=== PATIENT | male | born 1960 | race Caucasian/White ===

== ENCOUNTER 2016-09-07 12:56 | Observation (INO) | payer BC ==
[~2016-09-07] VITALS: Ht 170.2 cm; Wt 72.6 kg
[2016-09-07] MEDS ORDERED: IV NORMAL SALINE 1000ML BAG 1,000 ML IV SCH (13:06)
[2016-09-07] MEDS ORDERED: ONDANSETRON PF 4 MG/2 ML VIAL. IV ONE (13:15)
[2016-09-07] MEDS ORDERED: 0.9 % SODIUM CHLORIDE 10 ML DISP.SYRIN. IV PRN (13:15)
[2016-09-07 13:20] LABS: BASO # 0.1 x10^3/uL (0.0-0.2); BASO % 1 % (0-3); EOS % 1 % (0-3); HEMOGLOBIN 17.8 g/dL (13.0-17.5); LYMPH # 2.4 x10^3/uL (1.0-4.8); LYMPH % 11 % (24-48); MEAN CORPUSCULAR HEMOGLOBIN 31 pg (25-35); MEAN CORPUSCULAR HGB CONC 34 g/dL (31-37); MEAN CORPUSCULAR VOLUME 91 fL (79-100); MONO % 6 % (0-9); NEUT % 82 % (31-73); PLATELET COUNT 290 x10^3/uL (140-400); RED BLOOD COUNT 5.81 x10^6/uL (4.30-5.70); RED CELL DISTRIBUTION WIDTH 13.4 % (11.5-14.5); WHITE BLOOD COUNT 22.4 x10^3/uL (4.0-11.0)
[2016-09-07 13:31] LABS: CALCIUM 10.2 mg/dL (8.5-10.1); CREATININE 1.7 mg/dL (0.7-1.3); GFR 42.1; POTASSIUM 3.8 mmol/L (3.5-5.1)
[2016-09-07 13:37] LABS: ALBUMIN 4.9 g/dL (3.4-5.0); ALBUMIN/GLOBULIN RATIO 1.3 (1.0-1.7); TOTAL BILIRUBIN 0.9 mg/dL (0.2-1.0); TOTAL PROTEIN 8.7 g/dL (6.4-8.2)
--- NOTE | 2016-09-07 13:41 | PHYS DOC ---
Past Medical History Past Medical History: High Cholesterol, Hypertension Additional Past Surgical Histo: NECK SURGERY Alcohol Use: None Drug Use: None Adult General Chief Complaint Chief Complaint: HYPOTENSION HPI HPI Patient is a pleasant 55-year-old male with a history of hypertension and hypercholesterolemia presents with sudden onset of dizziness near syncope nausea vomiting diarrhea while at the doctor's office today. Patient admits that he was sitting in the doctor's office today waiting to be evaluated by his primary care physician when he acutely became nauseous and lightheaded and dizzy with near-syncopal event. Patient Symptoms are coming on to deliver the floor but vomited. He denied any chest pain or abdominal pain or focal neurologic deficit at the time before after event. He is not febrile to have any chills but did become diaphoretic. Patient feels better at this point in time despite being mildly nauseous. He did not lose consciousness and has not been exposed to anybody sick. He is not relatively country is not short of breath denies any direct trauma to his head or neck. Review of Systems Review of Systems Constitutional: Denies fever or chills [] Eyes: Denies change in visual acuity, redness, or eye pain [] HENT: Denies nasal congestion or sore throat [] Respiratory: Denies cough or shortness of breath [] Cardiovascular: No additional information not addressed in HPI [] GI: Denies abdominal pain does has nausea and vomiting nonbilious nonbloody nonbloody diarrhea nonmucoid stool. : Denies dysuria or hematuria [] Musculoskeletal: Denies back pain or joint pain [] Integument: Denies rash or skin lesions [] Neurologic: Patient feels lightheaded and dizzy with diaphoresis but no focal neurologic deficits or changes. Endocrine: Denies polyuria or polydipsia [] Current Medications Current Medications Current Medications Medications (Trade) Dose Ordered Sig/Laly Start Time Stop Time Status Last Admin Dose Admin Ondansetron HCl (Zofran) 4 mg 1X ONCE 09/07/16 13:15 09/07/16 13:16 DC 09/07/16 13:07 4 MG Sodium Chloride (Iv Sodium Chloride 0.9% 1000ml Bag) 1,000 ml @ 1,000 mls/hr Q1H 09/07/16 13:06 09/07/16 14:05 DC 09/07/16 13:06 1,000 MLS/HR Sodium Chloride (Normal Saline Flush) 10 ml QSHIFT PRN 09/07/16 13:15 Allergies Allergies Allergies Coded Allergies Type Severity Reaction Last Updated Verified No Known Drug Allergies 09/07/16 No Physical Exam Physical Exam Constitutional: Well developed, well nourished, he does look pale and mildly diaphoretic but nontoxic in appearance. HENT: Normocephalic, atraumatic, bilateral external ears normal, oropharynx moist, no oral exudates, nose normal. [] Eyes: PERRLA, EOMI, conjunctiva normal, no discharge. [] Neck: Normal range of motion, no tenderness, supple, no stridor. [] Cardiovascular: Heart rate is normal rate and rhythm normal S1-S2 Lungs & Thorax: Bilateral breath sounds clear to auscultation [] Abdomen: Increased bowel sounds nontender nondistended no masses or pulsatile masses. It is soft with no guarding rebound or organomegaly. Skin: Warm, dry, no erythema, no rash. [] Back: No tenderness, no CVA tenderness. [] Extremities: No tenderness, no cyanosis, no clubbing, ROM intact, no edema. [] Neurologic: Alert and oriented X 3, normal motor function, normal sensory function, no focal deficits noted. [] Psychologic: Affect normal, judgement normal, mood normal. [] Vital signs stable Current Patient Data Vital Signs Vital Signs Date Time Temp Pulse Resp B/P Pulse Ox O2 Delivery O2 Flow Rate FiO2 09/07/16 13:15 97.4 92 18 99/55 98 Room Air 97.4 Lab Values Laboratory Tests Test 09/07/16 13:10 White Blood Count 22.4x10^3/uL (4.0-11.0) H Red Blood Count 5.81x10^6/uL (4.30-5.70) H Hemoglobin 17.8g/dL (13.0-17.5) H Hematocrit 53.0% (39.0-53.0) Mean Corpuscular Volume 91fL (79-100) Mean Corpuscular Hemoglobin 31pg (25-35) Mean Corpuscular Hemoglobin Concent 34g/dL (31-37) Red Cell Distribution Width 13.4% (11.5-14.5) Platelet Count 290x10^3/uL (140-400) Neutrophils (%) (Auto) 82% (31-73) H Lymphocytes (%) (Auto) 11% (24-48) L Monocytes (%) (Auto) 6% (0-9) Eosinophils (%) (Auto) 1% (0-3) Basophils (%) (Auto) 1% (0-3) Neutrophils # (Auto) 18.3x10^3uL (1.8-7.7) H Lymphocytes # (Auto) 2.4x10^3/uL (1.0-4.8) Monocytes # (Auto) 1.4x10^3/uL (0.0-1.1) H Eosinophils # (Auto) 0.2x10^3/uL (0.0-0.7) Basophils # (Auto) 0.1x10^3/uL (0.0-0.2) Segmented Neutrophils % 67% (35-66) H Band Neutrophils % 14% (0-9) H Lymphocytes % 13% (24-48) L Monocytes % 6% (0-10) Toxic Granulation Slight Platelet Estimate Adequate (ADEQUATE) Sodium Level 137mmol/L (136-145) Potassium Level 3.8mmol/L (3.5-5.1) Chloride Level 101mmol/L (98-107) Carbon Dioxide Level 27mmol/L (21-32) Anion Gap 9 (6-14) Blood Urea Nitrogen 19mg/dL (8-26) Creatinine 1.7mg/dL (0.7-1.3) H Estimated GFR (Cockcroft-Gault) 42.1 BUN/Creatinine Ratio 11 (6-20) Glucose Level 134mg/dL (70-99) H Calcium Level 10.2mg/dL (8.5-10.1) H Total Bilirubin 0.9mg/dL (0.2-1.0) Aspartate Amino Transferase (AST) 26U/L (15-37) Alanine Aminotransferase (ALT) 30U/L (16-63) Alkaline Phosphatase 159U/L (46-116) H Troponin I Quantitative < 0.017ng/mL (0.000-0.055) Total Protein 8.7g/dL (6.4-8.2) H Albumin 4.9g/dL (3.4-5.0) Albumin/Globulin Ratio 1.3 (1.0-1.7) Lipase 151U/L (73-393) Laboratory Tests 09/07/16 13:10 Laboratory Tests 09/07/16 13:10 EKG EKG EKG timed 1:07 PM 5 06/10/16 demonstrates normal sinus rhythm bilateral atrial enlargement with heart rate of 90 patient is a 20 ripen much months based on jehovah's witness RR prime noted in V2 V3. No Q waves no ST segment elevation or T- wave inversion cyst with ischemia. [] Radiology/Procedures Radiology/Procedures [] Course & Med Decision Making Course & Med Decision Making Pertinent Labs and Imaging studies reviewed. (See chart for details) ration arrived in our emergency department with a history of near syncope following nausea vomiting diarrhea episode. He admits he been starving himself for laboratory draw with his primary care doctor before this event began. On arrival he was very pale and very diaphoretic. Nauseated. Approximately 1400 hrs. he is reevaluated some improvement of his symptoms. His color returned his heart rate improved patient was feeling less nauseous. At approximately 1500 patient was reevaluated again we discussed the laboratory results with increasedcreatinine which is likely secondary to self-inflicted restriction of fluid and food over the last 24 hours for his test. Patient is on menses very lightheaded when he sits up. Approximately 1530 patient was still having symptoms and we elected to admit him to the hospital for fluid hydration. I called his admitting physician Dr. Hood who will see and has agreed to admit patient to his service. [] Dragon Disclaimer Dragon Disclaimer This electronic medical record was generated, in whole or in part, using a voice recognition dictation system. Departure Departure Impression: Primary Impression: Near syncope Additional Impression: Nausea & vomiting Disposition: 02 TRANSFER [facility] Admitting Physician: Gloria Hood Condition: IMPROVED Referrals: GLORIA HOOD MD (PCP) Problem Qualifiers APOORVA WILDE MD September 07, 2016 13:41
--- NOTE | 2016-09-07 14:04 | EKG ---
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
[2016-09-07 14:54] LABS: PLT ESTIMATE ADEQUATE (ADEQUATE); TOXIC GRANULATION SLIGHT
[2016-09-07] MEDS ORDERED: ACETAMINOPHEN 325 MG TABLET. PO PRN ×2 (15:45→20:30)
[2016-09-07] MEDS ORDERED: IV NORMAL SALINE 1000ML BAG 1,000 ML IV ONE (15:45)
[2016-09-07] MEDS ORDERED: ONDANSETRON PF 4 MG/2 ML VIAL. IV PRN ×2 (15:45→20:30)
[2016-09-07 17:34] VITALS: BP 129/70
[2016-09-07 17:35] VITALS: BP 129/70
[2016-09-07] MEDS ORDERED: LISI40TA PO (18:09)
[2016-09-07] MEDS ORDERED: SIMV40TA3 PO (18:09)
[2016-09-07 19:58] VITALS: BP 110/66
--- NOTE | 2016-09-07 20:23 | PDOC1 ---
History and Physical Past Medical History Cardiovascular: HTN Current Problem List Problem List Problems Medical Problems: (1) Nausea & vomiting Status: Acute (2) Near syncope Status: Acute Current Medications Current Medications Current Medications Medications (Trade) Dose Ordered Sig/Laly Start Time Stop Time Status Last Admin Dose Admin Acetaminophen 650 mg 650 mg PRN Q4HRS PRN 09/07/16 15:45 09/08/16 15:44 Lisinopril (Prinivil) 40 mg HS 09/07/16 21:00 Ondansetron HCl (Zofran) 4 mg PRN Q8HRS PRN 09/07/16 15:45 09/08/16 15:44 Simvastatin (Zocor) 40 mg QHS 09/07/16 21:00 Sodium Chloride (Iv Sodium Chloride 0.9% 1000ml Bag) 1,000 ml @ 100 mls/hr 1X ONCE 09/07/16 15:45 09/08/16 01:44 09/07/16 18:02 100 MLS/HR Sodium Chloride (Normal Saline Flush) 10 ml QSHIFT PRN 09/07/16 13:15 Allergies Allergies Allergies Coded Allergies Type Severity Reaction Last Updated Verified No Known Drug Allergies 09/07/16 No ROS Review of System CONSTITUTIONAL: diarrhea, no fever EYES: No recent changes SKIN: No rash or itching CARDIOVASCULAR: No chest pain, syncope, palpitations, or edema RESPIRATORY: No SOB or cough GASTROINTESTINAL: No nausea, vomiting or abdominal pain NEUROLOGICAL: No headaches or weakness ENDOCRINE: No cold or heat intolerance GENITOURINARY: No urgency or frequency of urination MUSCULOSKELETAL: No back pain or joint pain LYMPHATICS: No enlarged lymph nodes PSYCHIATRIC: No anxiety or depression Physical Exam Physical Exam GEN.: No apparent distress. Alert and oriented. HEENT: Head is normocephalic, atraumatic NECK: Supple. LUNGS: Clear to auscultation. HEART: RRR, S1, S2 present. Peripheral pulses intact ABDOMEN: Soft, nontender. Positive bowel sounds. EXTREMITIES: Without any cyanosis. NEUROLOGIC: Normal speech, normal tone PSYCHIATRIC: Normal affect, normal mood. SKIN: No ulcerations Vitals Vitals Vital Signs Date Time Temp Pulse Resp B/P Pulse Ox O2 Delivery O2 Flow Rate FiO2 09/07/16 19:58 97.7 88 16 110/66 99 Room Air 97.7 Labs Labs Laboratory Tests Test 09/07/16 13:10 White Blood Count 22.4x10^3/uL (4.0-11.0) Red Blood Count 5.81x10^6/uL (4.30-5.70) Hemoglobin 17.8g/dL (13.0-17.5) Hematocrit 53.0% (39.0-53.0) Mean Corpuscular Volume 91fL (79-100) Mean Corpuscular Hemoglobin 31pg (25-35) Mean Corpuscular Hemoglobin Concent 34g/dL (31-37) Red Cell Distribution Width 13.4% (11.5-14.5) Platelet Count 290x10^3/uL (140-400) Neutrophils (%) (Auto) 82% (31-73) Lymphocytes (%) (Auto) 11% (24-48) Monocytes (%) (Auto) 6% (0-9) Eosinophils (%) (Auto) 1% (0-3) Basophils (%) (Auto) 1% (0-3) Neutrophils # (Auto) 18.3x10^3uL (1.8-7.7) Lymphocytes # (Auto) 2.4x10^3/uL (1.0-4.8) Monocytes # (Auto) 1.4x10^3/uL (0.0-1.1) Eosinophils # (Auto) 0.2x10^3/uL (0.0-0.7) Basophils # (Auto) 0.1x10^3/uL (0.0-0.2) Segmented Neutrophils % 67% (35-66) Band Neutrophils % 14% (0-9) Lymphocytes % 13% (24-48) Monocytes % 6% (0-10) Toxic Granulation Slight Platelet Estimate Adequate (ADEQUATE) Sodium Level 137mmol/L (136-145) Potassium Level 3.8mmol/L (3.5-5.1) Chloride Level 101mmol/L (98-107) Carbon Dioxide Level 27mmol/L (21-32) Anion Gap 9 (6-14) Blood Urea Nitrogen 19mg/dL (8-26) Creatinine 1.7mg/dL (0.7-1.3) Estimated GFR (Cockcroft-Gault) 42.1 BUN/Creatinine Ratio 11 (6-20) Glucose Level 134mg/dL (70-99) Calcium Level 10.2mg/dL (8.5-10.1) Total Bilirubin 0.9mg/dL (0.2-1.0) Aspartate Amino Transf (AST/SGOT) 26U/L (15-37) Alanine Aminotransferase (ALT/SGPT) 30U/L (16-63) Alkaline Phosphatase 159U/L (46-116) Troponin I Quantitative < 0.017ng/mL (0.000-0.055) Total Protein 8.7g/dL (6.4-8.2) Albumin 4.9g/dL (3.4-5.0) Albumin/Globulin Ratio 1.3 (1.0-1.7) Lipase 151U/L (73-393) Laboratory Tests Test 09/07/16 13:10 White Blood Count 22.4x10^3/uL (4.0-11.0) Red Blood Count 5.81x10^6/uL (4.30-5.70) Hemoglobin 17.8g/dL (13.0-17.5) Hematocrit 53.0% (39.0-53.0) Mean Corpuscular Volume 91fL (79-100) Mean Corpuscular Hemoglobin 31pg (25-35) Mean Corpuscular Hemoglobin Concent 34g/dL (31-37) Red Cell Distribution Width 13.4% (11.5-14.5) Platelet Count 290x10^3/uL (140-400) Neutrophils (%) (Auto) 82% (31-73) Lymphocytes (%) (Auto) 11% (24-48) Monocytes (%) (Auto) 6% (0-9) Eosinophils (%) (Auto) 1% (0-3) Basophils (%) (Auto) 1% (0-3) Neutrophils # (Auto) 18.3x10^3uL (1.8-7.7) Lymphocytes # (Auto) 2.4x10^3/uL (1.0-4.8) Monocytes # (Auto) 1.4x10^3/uL (0.0-1.1) Eosinophils # (Auto) 0.2x10^3/uL (0.0-0.7) Basophils # (Auto) 0.1x10^3/uL (0.0-0.2) Segmented Neutrophils % 67% (35-66) Band Neutrophils % 14% (0-9) Lymphocytes % 13% (24-48) Monocytes % 6% (0-10) Toxic Granulation Slight Platelet Estimate Adequate (ADEQUATE) Sodium Level 137mmol/L (136-145) Potassium Level 3.8mmol/L (3.5-5.1) Chloride Level 101mmol/L (98-107) Carbon Dioxide Level 27mmol/L (21-32) Anion Gap 9 (6-14) Blood Urea Nitrogen 19mg/dL (8-26) Creatinine 1.7mg/dL (0.7-1.3) Estimated GFR (Cockcroft-Gault) 42.1 BUN/Creatinine Ratio 11 (6-20) Glucose Level 134mg/dL (70-99) Calcium Level 10.2mg/dL (8.5-10.1) Total Bilirubin 0.9mg/dL (0.2-1.0) Aspartate Amino Transf (AST/SGOT) 26U/L (15-37) Alanine Aminotransferase (ALT/SGPT) 30U/L (16-63) Alkaline Phosphatase 159U/L (46-116) Troponin I Quantitative < 0.017ng/mL (0.000-0.055) Total Protein 8.7g/dL (6.4-8.2) Albumin 4.9g/dL (3.4-5.0) Albumin/Globulin Ratio 1.3 (1.0-1.7) Lipase 151U/L (73-393) VTE Prophylaxis Ordered VTE Prophylaxis Devices: No VTE Pharmacological Prophylaxi: No MAINE ABRAHAM MD September 07, 2016 20:23
[2016-09-07] MEDS ORDERED: HYDROCODONE/APAP 5/325MG TABLET. PO PRN (20:30)
[2016-09-07] MEDS ORDERED: hydrALAZINE 20 MG/ML VIAL. IVP PRN (20:30)
[2016-09-07] MEDS: IV NORMAL SALINE 1000ML BAG 1,000 ML IV SCH (20:30)
[2016-09-07] MEDS ORDERED: ALBUTEROL SULFATE 2.5 MG/3 ML NEBU. NEB PRN (20:30)
[2016-09-07] MEDS: CIPROFLOXACIN 400MG PREMIX 200 ML IV SCH (20:53)
[2016-09-07] MEDS: METRONIDAZOLE 500mg PREMIX 100 ML IV SCH (20:53)
[2016-09-07] MEDS ORDERED: SIMVASTATIN 40 MG TABLET. PO SCH (21:00)
[2016-09-07] MEDS ORDERED: LISINOPRIL 40 MG TABLET. PO SCH (21:00)
--- NOTE | 2016-09-07 22:53 | HP ---
ADMIT DATE: 09/07/2016 CHIEF COMPLAINT: Hypotension. HISTORY OF PRESENT ILLNESS: A 55-year-old male patient with prior history of hypertension and hyperlipidemia, presented to the ER with complaints of dizziness and near syncope. He was evaluated by the PCP's office this morning and sent him to the ER. Reportedly, the patient has some nausea and diarrhea for nearly 1 day. He had a nearly 7 bowel movements prior to his visit to ER. At the time of admission, he was hypotensive, 99/55, with tachycardia. Symptoms improved with IV hydration; however, he continued to have diarrhea during hospitalization. He denies any fevers, chills, sick contacts, or travel history. 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 He developed some vasomotor nephropathy and acute kidney injury due to dehydration. PAST MEDICAL HISTORY: Hypertension and hyperlipidemia. PAST SURGICAL HISTORY: None. ALLERGIES: NKDA. FAMILY HISTORY: Unknown to the patient. PERSONAL HISTORY: Smoking occasionally. No alcohol, no drug abuse. REVIEW OF SYSTEMS AND PHYSICAL EXAMINATION: Please see my electronic H and P. LABORATORY FINDINGS: WBC 22.5, hemoglobin 17.88, platelets 290, segmented neutrophils 67, bands 14%. Toxic granulation slight. Chemistry: Sodium 137, potassium 3.8, chloride is 101, anion gap is 9, creatinine 1.7, glucose 134. Troponin 0.017. ASSESSMENT: 1. Severe diarrhea with dehydration and hypotension and near syncope. 2. Leukocytosis and acute kidney injury due to vasomotor nephropathy. 3. . 4. Near syncope due to dehydration. 5. Nausea and vomiting and diarrhea. 6. Possible gastroenteritis, viral versus infectious. PLAN: 1. He has been admitted to the hospital for IV hydration, currently he is getting IV fluids at 125 mL per hour. I will continue IV fluids. 2. CBC and BMP ordered, also I started him on ciprofloxacin and Flagyl, suspecting a bacterial infection and stool studies have been ordered. 3. C. diff is pending. 4. IV Zofran for nausea and vomiting. 5. home medications resumed. 6. Hypotension has been improving, I will recheck his BMP in a.m. 7. Monitor WBC in a.m. 8. Supportive care. 9. Prognosis is guarded. 10. All questions were answered. MAINE ABRAHAM MD DR: BRYANNA/syed JOB#: [id number] / [id number] DANIEL
[2016-09-07 23:35] VITALS: BP 119/71
[2016-09-08 03:41] VITALS: BP 102/63
[2016-09-08] MEDS: IV NORMAL SALINE 1000ML BAG 1,000 ML IV SCH (04:30)
[2016-09-08 06:07] LABS: BASO # 0.1 x10^3/uL (0.0-0.2); BASO % 1 % (0-3); EOS % 2 % (0-3); HEMATOCRIT 42.2 % (39.0-53.0); HEMOGLOBIN 14.7 g/dL (13.0-17.5); LYMPH # 2.7 x10^3/uL (1.0-4.8); LYMPH % 26 % (24-48); MEAN CORPUSCULAR HEMOGLOBIN 31 pg (25-35); MEAN CORPUSCULAR HGB CONC 35 g/dL (31-37); MEAN CORPUSCULAR VOLUME 89 fL (79-100); MONO % 6 % (0-9); NEUT % 66 % (31-73); PLATELET COUNT 192 x10^3/uL (140-400); RED BLOOD COUNT 4.73 x10^6/uL (4.30-5.70); RED CELL DISTRIBUTION WIDTH 13.3 % (11.5-14.5); WHITE BLOOD COUNT 10.5 x10^3/uL (4.0-11.0)
[2016-09-08] MEDS: METRONIDAZOLE 500mg PREMIX 100 ML IV SCH (06:13)
[2016-09-08 06:34] LABS: ALBUMIN 3.3 g/dL (3.4-5.0); ALBUMIN/GLOBULIN RATIO 1.2 (1.0-1.7); CALCIUM 8.3 mg/dL (8.5-10.1); CREATININE 0.9 mg/dL (0.7-1.3); GFR 87.6; TOTAL PROTEIN 6.1 g/dL (6.4-8.2)
[2016-09-08 07:20] VITALS: BP 118/80
[2016-09-08] MEDS: CIPROFLOXACIN 400MG PREMIX 200 ML IV SCH (08:27)
[2016-09-08 10:53] VITALS: BP 120/73
[2016-09-08] MEDS ORDERED: CIPR500T94 PO (10:55)
--- NOTE | 2016-09-08 10:58 | PDOC3 ---
Discharge Summary Visit Information Date of Admission: September 07, 2016 Date of Discharge: September 08, 2016 Admitting Diagnosis Comment: 1. Severe diarrhea with dehydration and hypotension and near syncope. resolved 2. Leukocytosis and acute kidney injury due to vasomotor nephropathy. 3. . 4. Near syncope due to dehydration. 5. Nausea and vomiting and diarrhea. 6. Possible gastroenteritis, viral versus infectious. Final Diagnosis Problems Medical Problems: (1) Gastroenteritis Status: Acute (2) Nausea & vomiting Status: Acute (3) Near syncope Status: Acute Brief Hospital Course Allergies Allergies Coded Allergies Type Severity Reaction Last Updated Verified No Known Drug Allergies 09/07/16 No Vital Signs Vital Signs Date Time Temp Pulse Resp B/P Pulse Ox O2 Delivery O2 Flow Rate FiO2 09/08/16 10:53 97.5 84 18 120/73 95 Room Air 97.5 Lab Results Laboratory Tests Test 09/07/16 13:10 09/08/16 05:10 White Blood Count 22.4x10^3/uL (4.0-11.0) 10.5x10^3/uL (4.0-11.0) Red Blood Count 5.81x10^6/uL (4.30-5.70) 4.73x10^6/uL (4.30-5.70) Hemoglobin 17.8g/dL (13.0-17.5) 14.7g/dL (13.0-17.5) Hematocrit 53.0% (39.0-53.0) 42.2% (39.0-53.0) Mean Corpuscular Volume 91fL (79-100) 89fL (79-100) Mean Corpuscular Hemoglobin 31pg (25-35) 31pg (25-35) Mean Corpuscular Hemoglobin Concent 34g/dL (31-37) 35g/dL (31-37) Red Cell Distribution Width 13.4% (11.5-14.5) 13.3% (11.5-14.5) Platelet Count 290x10^3/uL (140-400) 192x10^3/uL (140-400) Neutrophils (%) (Auto) 82% (31-73) 66% (31-73) Lymphocytes (%) (Auto) 11% (24-48) 26% (24-48) Monocytes (%) (Auto) 6% (0-9) 6% (0-9) Eosinophils (%) (Auto) 1% (0-3) 2% (0-3) Basophils (%) (Auto) 1% (0-3) 1% (0-3) Neutrophils # (Auto) 18.3x10^3uL (1.8-7.7) 6.9x10^3uL (1.8-7.7) Lymphocytes # (Auto) 2.4x10^3/uL (1.0-4.8) 2.7x10^3/uL (1.0-4.8) Monocytes # (Auto) 1.4x10^3/uL (0.0-1.1) 0.6x10^3/uL (0.0-1.1) Eosinophils # (Auto) 0.2x10^3/uL (0.0-0.7) 0.2x10^3/uL (0.0-0.7) Basophils # (Auto) 0.1x10^3/uL (0.0-0.2) 0.1x10^3/uL (0.0-0.2) Segmented Neutrophils % 67% (35-66) Band Neutrophils % 14% (0-9) Lymphocytes % 13% (24-48) Monocytes % 6% (0-10) Toxic Granulation Slight Platelet Estimate Adequate (ADEQUATE) Sodium Level 137mmol/L (136-145) 139mmol/L (136-145) Potassium Level 3.8mmol/L (3.5-5.1) 4.0mmol/L (3.5-5.1) Chloride Level 101mmol/L (98-107) 107mmol/L (98-107) Carbon Dioxide Level 27mmol/L (21-32) 26mmol/L (21-32) Anion Gap 9 (6-14) 6 (6-14) Blood Urea Nitrogen 19mg/dL (8-26) 18mg/dL (8-26) Creatinine 1.7mg/dL (0.7-1.3) 0.9mg/dL (0.7-1.3) Estimated GFR (Cockcroft-Gault) 42.1 87.6 BUN/Creatinine Ratio 11 (6-20) 20 (6-20) Glucose Level 134mg/dL (70-99) 94mg/dL (70-99) Calcium Level 10.2mg/dL (8.5-10.1) 8.3mg/dL (8.5-10.1) Total Bilirubin 0.9mg/dL (0.2-1.0) 1.0mg/dL (0.2-1.0) Aspartate Amino Transf (AST/SGOT) 26U/L (15-37) 49U/L (15-37) Alanine Aminotransferase (ALT/SGPT) 30U/L (16-63) 29U/L (16-63) Alkaline Phosphatase 159U/L (46-116) 103U/L (46-116) Troponin I Quantitative < 0.017ng/mL (0.000-0.055) Total Protein 8.7g/dL (6.4-8.2) 6.1g/dL (6.4-8.2) Albumin 4.9g/dL (3.4-5.0) 3.3g/dL (3.4-5.0) Albumin/Globulin Ratio 1.3 (1.0-1.7) 1.2 (1.0-1.7) Lipase 151U/L (73-393) Laboratory Tests Test 09/07/16 13:10 09/08/16 05:10 White Blood Count 22.4x10^3/uL (4.0-11.0) 10.5x10^3/uL (4.0-11.0) Red Blood Count 5.81x10^6/uL (4.30-5.70) 4.73x10^6/uL (4.30-5.70) Hemoglobin 17.8g/dL (13.0-17.5) 14.7g/dL (13.0-17.5) Hematocrit 53.0% (39.0-53.0) 42.2% (39.0-53.0) Mean Corpuscular Volume 91fL (79-100) 89fL (79-100) Mean Corpuscular Hemoglobin 31pg (25-35) 31pg (25-35) Mean Corpuscular Hemoglobin Concent 34g/dL (31-37) 35g/dL (31-37) Red Cell Distribution Width 13.4% (11.5-14.5) 13.3% (11.5-14.5) Platelet Count 290x10^3/uL (140-400) 192x10^3/uL (140-400) Neutrophils (%) (Auto) 82% (31-73) 66% (31-73) Lymphocytes (%) (Auto) 11% (24-48) 26% (24-48) Monocytes (%) (Auto) 6% (0-9) 6% (0-9) Eosinophils (%) (Auto) 1% (0-3) 2% (0-3) Basophils (%) (Auto) 1% (0-3) 1% (0-3) Neutrophils # (Auto) 18.3x10^3uL (1.8-7.7) 6.9x10^3uL (1.8-7.7) Lymphocytes # (Auto) 2.4x10^3/uL (1.0-4.8) 2.7x10^3/uL (1.0-4.8) Monocytes # (Auto) 1.4x10^3/uL (0.0-1.1) 0.6x10^3/uL (0.0-1.1) Eosinophils # (Auto) 0.2x10^3/uL (0.0-0.7) 0.2x10^3/uL (0.0-0.7) Basophils # (Auto) 0.1x10^3/uL (0.0-0.2) 0.1x10^3/uL (0.0-0.2) Segmented Neutrophils % 67% (35-66) Band Neutrophils % 14% (0-9) Lymphocytes % 13% (24-48) Monocytes % 6% (0-10) Toxic Granulation Slight Platelet Estimate Adequate (ADEQUATE) Sodium Level 137mmol/L (136-145) 139mmol/L (136-145) Potassium Level 3.8mmol/L (3.5-5.1) 4.0mmol/L (3.5-5.1) Chloride Level 101mmol/L (98-107) 107mmol/L (98-107) Carbon Dioxide Level 27mmol/L (21-32) 26mmol/L (21-32) Anion Gap 9 (6-14) 6 (6-14) Blood Urea Nitrogen 19mg/dL (8-26) 18mg/dL (8-26) Creatinine 1.7mg/dL (0.7-1.3) 0.9mg/dL (0.7-1.3) Estimated GFR (Cockcroft-Gault) 42.1 87.6 BUN/Creatinine Ratio 11 (6-20) 20 (6-20) Glucose Level 134mg/dL (70-99) 94mg/dL (70-99) Calcium Level 10.2mg/dL (8.5-10.1) 8.3mg/dL (8.5-10.1) Total Bilirubin 0.9mg/dL (0.2-1.0) 1.0mg/dL (0.2-1.0) Aspartate Amino Transf (AST/SGOT) 26U/L (15-37) 49U/L (15-37) Alanine Aminotransferase (ALT/SGPT) 30U/L (16-63) 29U/L (16-63) Alkaline Phosphatase 159U/L (46-116) 103U/L (46-116) Troponin I Quantitative < 0.017ng/mL (0.000-0.055) Total Protein 8.7g/dL (6.4-8.2) 6.1g/dL (6.4-8.2) Albumin 4.9g/dL (3.4-5.0) 3.3g/dL (3.4-5.0) Albumin/Globulin Ratio 1.3 (1.0-1.7) 1.2 (1.0-1.7) Lipase 151U/L (73-393) Brief Hospital Course Mr. Jimenez is a 55 old male admitted for severe diarrhea and dehydration from 1 day diarrhea. non immunocomp, works long term. Unable to get c diff specimen bec no more diarrhea, NO fevers, WBC down to normal from 20, ULICES down to 0.8 from 1.7. Clinically better and ready for home today Ff up Dr. Terry Work excuse given Rx for cipro given COnsults None Dw , time 32 mins> 50% staff counselor Pt kiley nd exmained Discharge Information Condition at Discharge: Improved, Stable Disposition/Orders: D/C to Home Scheduled Lisinopril (Lisinopril) 1 TAB PO QHS (Reported) Simvastatin (Simvastatin) 1 TAB PO QHS (Reported) LÓPEZ DELATORRE MD September 08, 2016 10:58
== END 2016-09-08 11:20 | disposition home or self-care (01) ==
LOC: ER 12:56 → 6 SOUTH 16:07
PROVIDERS: ADMIT Internal Medicine; ATTEND Internal Medicine
DX: E86.0 Dehydration (principal); E78.00 Pure hypercholesterolemia, unspecified; E78.5 Hyperlipidemia, unspecified; I10 Essential (primary) hypertension; K52.9 Noninfective gastroenteritis and colitis, unspecified; N17.0 Acute kidney failure with tubular necrosis
CPT/HCPCS: 36415; 80053; 83690; 84484; 85007; 85027; 93005; 94250; 96361; 96365; 96366; 96368; 96375; 99285; G0378; J0744; J2405; J3490; J7030; G0379

== ENCOUNTER 2017-11-20 20:58 | Inpatient (IN) | payer BC ==
[2017-11-20 21:12] LABS: ADD MAN DIFF? NO
[2017-11-20 21:13] LABS: BASO # 0.1 x10^3/uL (0.0-0.2); BASO % 1 % (0-3); EOS # 0.3 x10^3/uL (0.0-0.7); EOS % 2 % (0-3); HEMATOCRIT 43.8 % (39.0-53.0); LYMPH # 3.6 x10^3/uL (1.0-4.8); LYMPH % 33 % (24-48); MEAN CORPUSCULAR HEMOGLOBIN 31 pg (25-35); MEAN CORPUSCULAR HGB CONC 34 g/dL (31-37); MEAN CORPUSCULAR VOLUME 92 fL (79-100); MONO # 0.7 x10^3/uL (0.0-1.1); MONO % 6 % (0-9); NEUT # 6.4 x10^3uL (1.8-7.7); NEUT % 58 % (31-73); PLATELET COUNT 175 x10^3/uL (140-400); RED BLOOD COUNT 4.76 x10^6/uL (4.30-5.70); RED CELL DISTRIBUTION WIDTH 13.8 % (11.5-14.5)
[2017-11-20 21:24] LABS: ANION GAP 11 (6-14); BLOOD UREA NITROGEN 23 mg/dL (8-26); BUN/CREATININE RATIO 19 (6-20); CALCIUM 8.6 mg/dL (8.5-10.1); CARBON DIOXIDE 25 mmol/L (21-32); CHLORIDE 106 mmol/L (98-107); CREATININE 1.2 mg/dL (0.7-1.3); GFR 62.4; GLUCOSE 105 mg/dL (70-99); POTASSIUM 4.4 mmol/L (3.5-5.1); SODIUM 142 mmol/L (136-145)
[2017-11-20 21:30] LABS: ALBUMIN 4.1 g/dL (3.4-5.0); ALBUMIN/GLOBULIN RATIO 1.6 (1.0-1.7); ALK PHOS 139 U/L (46-116); ALT (SGPT) 31 U/L (16-63); AST (SGOT) 21 U/L (15-37); MAGNESIUM 1.8 mg/dL (1.8-2.4); TOTAL BILIRUBIN 0.4 mg/dL (0.2-1.0); TOTAL PROTEIN 6.7 g/dL (6.4-8.2)
[2017-11-20 21:34] LABS: TROPONINI 0.056 ng/mL (0.000-0.055)
[2017-11-20] MEDS: IV NORMAL SALINE 1000ML BAG 1,000 ML IV (21:56)
[2017-11-20 23:59] LABS: TROPONINI 0.184 ng/mL (0.000-0.055)
[2017-11-21] MEDS ORDERED: MORPHINE SULFATE 2 MG/ML DISP.SYRIN. IV (00:45)
[2017-11-21] MEDS ORDERED: ONDANSETRON PF 4 MG/2 ML VIAL. IV (00:45)
[2017-11-21] MEDS: HEPARIN for IV BOLUS 10,000 UNIT/10 ML VIAL. IV ×2 (01:10→09:52)
[2017-11-21] MEDS: HEPARIN 25,000UTS/500ML PREMIX 500 ML IV (01:10)
[2017-11-21] MEDS ORDERED: HEPARIN 25,000UTS/500ML PREMIX 500 ML IV (02:30)
[2017-11-21 07:42] LABS: TROPONINI 0.118 ng/mL (0.000-0.055)
[2017-11-21 07:48] LABS: UNFRACTIONATED HEPARIN TESTING 0.17 IU/mL (0.30-0.70)
[2017-11-21] MEDS ORDERED: 0.9 % SODIUM CHLORIDE 10 ML DISP.SYRIN. IV (09:30)
[2017-11-21 09:45] LABS: CHOLESTEROL 185 mg/dL (0-200); HDLC 41 mg/dL (40-60); LDLC 133 mg/dL (0-100); NON-HDL CHOLESTEROL 144 mg/dL (0-129); TRIGLYCERIDES 56 mg/dL (0-150); VLDLC 11 mg/dL (0-40)
[2017-11-21] MEDS: METOPROLOL TART IMMED RELEASE 25 MG TABLET. PO ×2 (09:45→21:03)
[2017-11-21] MEDS: ASPIRIN 325 MG TABLET PO (09:45)
[2017-11-21 09:47] LABS: CHOLESTEROL/HDL RATIO 4.5
[2017-11-21] MEDS ORDERED: IODIXANOL 320 MG/ML 100 ML VIAL. ×2 (11:26→11:27)
[2017-11-21] MEDS ORDERED: HEPARIN for ARTERIAL LINE 1,500 ML (11:27)
[2017-11-21] MEDS ORDERED: LIDOCAINE 2% 20 ML VIAL. (11:27)
[2017-11-21] MEDS: ANTI-COAG MONITOR BY PHARMACY. MC (12:29)
[2017-11-21] MEDS ORDERED: HEPARIN for IV BOLUS 10,000 UNIT/10 ML VIAL. (13:48)
[2017-11-21] MEDS ORDERED: fentaNYL PF VIAL 100 MCG/2 ML VIAL (13:48)
[2017-11-21] MEDS ORDERED: MIDAZOLAM HCL/PF 2 MG/2 ML VIAL. ×2 (13:48→14:36)
[2017-11-21] MEDS ORDERED: VERAPAMIL 5 MG/2 ML VIAL. (13:48)
[2017-11-21] MEDS ORDERED: NITROGLYCERIN 200 MCG/2 ML SYRINGE FOR CATH/VASC LAB. (13:48)
[2017-11-21] MEDS ORDERED: CONTRAST GIVEN. MC (14:30)
[2017-11-21] MEDS: LIDOCAINE 2% 20 ML VIAL. IJ (15:00)
[2017-11-21] MEDS: VERAPAMIL 5 MG/2 ML VIAL. IART (15:01)
[2017-11-21] MEDS: NITROGLYCERIN 200 MCG/2 ML SYRINGE FOR CATH/VASC LAB. IART (15:01)
[2017-11-21] MEDS: IODIXANOL 320 MG/ML 100 ML VIAL. IART (15:01)
[2017-11-21] MEDS: HEPARIN for IV BOLUS 10,000 UNIT/10 ML VIAL. IART (15:02)
[2017-11-21] MEDS: MIDAZOLAM HCL/PF 2 MG/2 ML VIAL. IV (15:02)
[2017-11-21] MEDS: fentaNYL PF VIAL 100 MCG/2 ML VIAL IV (15:03)
[2017-11-21] MEDS: ATORVASTATIN CALCIUM 40 MG TABLET. PO (21:03)
[2017-11-22 04:26] LABS: ADD MAN DIFF? NO
[2017-11-22 04:29] LABS: BASO # 0.1 x10^3/uL (0.0-0.2); BASO % 1 % (0-3); EOS # 0.2 x10^3/uL (0.0-0.7); EOS % 2 % (0-3); HEMATOCRIT 43.7 % (39.0-53.0); LYMPH # 2.2 x10^3/uL (1.0-4.8); LYMPH % 20 % (24-48); MEAN CORPUSCULAR HEMOGLOBIN 32 pg (25-35); MEAN CORPUSCULAR HGB CONC 34 g/dL (31-37); MEAN CORPUSCULAR VOLUME 92 fL (79-100); MONO # 0.7 x10^3/uL (0.0-1.1); MONO % 6 % (0-9); NEUT % 72 % (31-73); PLATELET COUNT 150 x10^3/uL (140-400); RED BLOOD COUNT 4.75 x10^6/uL (4.30-5.70); RED CELL DISTRIBUTION WIDTH 13.7 % (11.5-14.5); WHITE BLOOD COUNT 11.2 x10^3/uL (4.0-11.0)
[2017-11-22 04:58] LABS: ALBUMIN 3.6 g/dL (3.4-5.0); ALBUMIN/GLOBULIN RATIO 1.4 (1.0-1.7); ALK PHOS 118 U/L (46-116); ALT (SGPT) 25 U/L (16-63); ANION GAP 9 (6-14); AST (SGOT) 18 U/L (15-37); BLOOD UREA NITROGEN 16 mg/dL (8-26); BUN/CREATININE RATIO 18 (6-20); CALCIUM 8.5 mg/dL (8.5-10.1); CARBON DIOXIDE 25 mmol/L (21-32); CHLORIDE 106 mmol/L (98-107); CREATININE 0.9 mg/dL (0.7-1.3); GLUCOSE 98 mg/dL (70-99); POTASSIUM 3.9 mmol/L (3.5-5.1); SODIUM 140 mmol/L (136-145); TOTAL BILIRUBIN 0.7 mg/dL (0.2-1.0); TOTAL PROTEIN 6.2 g/dL (6.4-8.2)
[2017-11-22] MEDS: METOPROLOL TART IMMED RELEASE 25 MG TABLET. PO (08:03)
[2017-11-22] MEDS ORDERED: dilTIAZem IV PUSH 25 MG/5 ML VIAL IVP (11:15)
[2017-11-22] MEDS ORDERED: dilTIAZem INJ 125 MG in IV DEXTROSE 5% 100ML 100 ML IV (11:30)
== END 2017-11-22 11:42 | disposition home or self-care (01) | DRG 280 ==
LOC: 1 WEST ICU 11-21 00:23 → ER 20:58 → 2 NORTH 11-21 08:29
PROC: B2111ZZ Fluoroscopy of Multiple Coronary Arteries using Low Osmolar Contrast (ICD-10-PCS; principal; 2017-11-21)
PROC: B2151ZZ Fluoroscopy of Left Heart using Low Osmolar Contrast (ICD-10-PCS; 2017-11-21)
PROC: 4A023N8 Measurement of Cardiac Sampling and Pressure, Bilateral, Percutaneous Approach (ICD-10-PCS; 2017-11-21)
DX: I21.4 Non-ST elevation (NSTEMI) myocardial infarction (principal); I50.33 Acute on chronic diastolic (congestive) heart failure; E78.00 Pure hypercholesterolemia, unspecified; E78.5 Hyperlipidemia, unspecified; F17.210 Nicotine dependence, cigarettes, uncomplicated; I10 Essential (primary) hypertension; I25.10 Atherosclerotic heart disease of native coronary artery without angina pectoris; I35.9 Nonrheumatic aortic valve disorder, unspecified; I45.10 Unspecified right bundle-branch block; Z82.49 Family history of ischemic heart disease and other diseases of the circulatory system; Z95.1 Presence of aortocoronary bypass graft; M19.90 Unspecified osteoarthritis, unspecified site
CPT/HCPCS: 36415; 71045; 80053; 80061; 83735; 84484; 85025; 85520; 93005; 93306; 93460; 96361; 96365; 99152; 99153; 99285-25; 99406; C1769; C1773; C1892; J1644; J2001; J2250; J3010; J3490; J7030

== ENCOUNTER → 2017-12-12 | Outpatient (CLI) | payer BC ==
[2017-12-12 13:26] LABS: ADD MAN DIFF? NO
[2017-12-12 13:29] LABS: BASO # 0.1 x10^3/uL (0.0-0.2); BASO % 1 % (0-3); EOS # 0.3 x10^3/uL (0.0-0.7); EOS % 3 % (0-3); HEMATOCRIT 45.3 % (39.0-53.0); HEMOGLOBIN 15.6 g/dL (13.0-17.5); LYMPH # 3.2 x10^3/uL (1.0-4.8); LYMPH % 31 % (24-48); MEAN CORPUSCULAR HEMOGLOBIN 31 pg (25-35); MEAN CORPUSCULAR HGB CONC 35 g/dL (31-37); MEAN CORPUSCULAR VOLUME 91 fL (79-100); MONO # 0.8 x10^3/uL (0.0-1.1); MONO % 8 % (0-9); NEUT # 5.9 x10^3uL (1.8-7.7); NEUT % 57 % (31-73); PLATELET COUNT 186 x10^3/uL (140-400); RED BLOOD COUNT 4.99 x10^6/uL (4.30-5.70); RED CELL DISTRIBUTION WIDTH 13.3 % (11.5-14.5); WHITE BLOOD COUNT 10.4 x10^3/uL (4.0-11.0)
[2017-12-12 13:38] LABS: PARTIAL THROMBOPLASTIN TIME 28 SEC (24-38); PROTHROMBIN TIME PATIENT 12.7 SEC (11.7-14.0)
[2017-12-12 13:40] LABS: ANION GAP 8 (6-14); BLOOD UREA NITROGEN 12 mg/dL (8-26); BUN/CREATININE RATIO 13 (6-20); CARBON DIOXIDE 26 mmol/L (21-32); CHLORIDE 105 mmol/L (98-107); CREATININE 0.9 mg/dL (0.7-1.3); GLUCOSE 95 mg/dL (70-99); POTASSIUM 4.4 mmol/L (3.5-5.1); SODIUM 139 mmol/L (136-145)
[2017-12-12 13:46] LABS: ALBUMIN 4.1 g/dL (3.4-5.0); ALBUMIN/GLOBULIN RATIO 1.6 (1.0-1.7); ALK PHOS 135 U/L (46-116); ALT (SGPT) 38 U/L (16-63); AST (SGOT) 22 U/L (15-37); TOTAL BILIRUBIN 0.6 mg/dL (0.2-1.0); TOTAL PROTEIN 6.6 g/dL (6.4-8.2)
[2017-12-13 11:30] LABS: HEMOGLOBIN A1C 4.8 % (4.8-5.6)
== END | disposition home or self-care (01) ==
LOC: CT 11:12
DX: Z01.810 Encounter for preprocedural cardiovascular examination (principal); K80.20 Calculus of gallbladder without cholecystitis without obstruction; M47.894 Other spondylosis, thoracic region; E78.5 Hyperlipidemia, unspecified; E78.00 Pure hypercholesterolemia, unspecified; I25.10 Atherosclerotic heart disease of native coronary artery without angina pectoris; I11.0 Hypertensive heart disease with heart failure; I50.33 Acute on chronic diastolic (congestive) heart failure; R91.1 Solitary pulmonary nodule; Z87.891 Personal history of nicotine dependence
CPT/HCPCS: 36415; 71046; 71250; 80053; 83036; 85025; 85610; 85730; 93880

== ENCOUNTER 2017-12-13 05:51 | Inpatient (IN) | payer BC ==
--- NOTE | 2017-12-12 12:33 | PDOC1 ---
History and Physical Date of Admission Date of Admission DATE: 12/13/17 TIME: 06:30 Identification/Chief Complaint Chief Complaint Syncope Source Source: Chart review, Patient History of Present Illness History of Present Illness Mr Jimenez is a pleasant 57 year old male, who has severe aortic valve stenosis. The patient has a three-year history of intermittent syncopes. He also complains of occasional angina and shortness of breath on minimal exertion. He was admitted after a near syncope and CHF 2 weeks ago. An echo at that time demonstrated mean gradient across the aortic valve of 50mmHg, an aortic valve area of 0.8 cm, and a velocity of 4.2, consistent with severe aortic valve stenosis. Ejection fraction is preserved and the rest of the valves are functioning well. He also had coronary angiography which was essentially normal. A left heart cath showed increased LVEDP of 35mmHg. Past Medical History Cardiovascular: HTN, Hyperlipidemia Pulmonary: No pertinent hx CENTRAL NERVOUS SYSTEM: Other GI: No pertinent hx Heme/Onc: No pertinent hx Hepatobiliary: No pertinent hx Psych: No pertinent hx Musculoskeletal: Osteoarthritis Rheumatologic: No pertinent hx Infectious disease: No pertinent hx Renal/: No pertinent hx Endocrine: No pertinent hx Past Surgical History Past Surgical History: Tonsillectomy, Other Family History Family History: No Significant Social History ALCOHOL: none Drugs: None Current Medications Current Medications Current Medications Tranexamic Acid 1000 mg/Sodium Chloride 60 ml @ 60 mls/hr 1X PERIOP ONCE INJ ; Start 12/13/17 at 06:00; Stop 12/13/17 at 06:59 Cefazolin Sodium 1 gm/Sodium Chloride 500 ml @ 500 mls/hr 1X ONCE IRR ; Start 12/13/17 at 06:00; Stop 12/13/17 at 06:59 Active Scripts Active Aspirin Ec (Aspirin) 81 Mg Tablet.dr 1 Tab PO DAILY Metoprolol Tartrate 25 Mg Tablet 12.5 Mg PO BID Atorvastatin Calcium 40 Mg Tablet 40 Mg PO QHS Allergies Allergies: Coded Allergies: No Known Drug Allergies (Unverified , 12/13/17) ROS General: No: Chills, Night Sweats, Fatigue, Malaise, Appetite PSYCHOLOGICAL ROS: No: Anxiety, Behavioral Disorder, Concentration difficultie , Decreased libido, Depression, Disorientation, Hallucinations, Hostility, Irritablity, Memory difficulties, Mood Swings, Obsessive thoughts, Physical abuse, Sexual abuse, Sleep disturbances, Suicidal ideation Eyes: No Blurry vision, No Decreased vision, No Double vision, No Dry eyes, No Excessive tearing, No Eye Pain, No Itchy Eyes, No Loss of vision, No Photophobia , No Scotomata, No Uses contacts, No Uses glasses HEENT: No: Heacaches, Visual Changes, Hearing change, Nasal congestion, Nasal discharge, Oral lesions, Sinus pain, Sore Throat, Epistaxis, Sneezing, Snoring, Tinnitus, Vertigo, Vocal changes ALLERGY AND IMMUNOLOGY: No: Hives, Insect Bite Sensitivity, Itchy/Watery Eyes, Nasal Congestion, Post Nasal Drip, Seasonal Allergies Hematological and Lymphatic: No: Bleeding Problems, Blood Clots, Blood Transfusions, Brusing, Night Sweats, Pallor, Swollen Lymph Nodes ENDOCRINE: No: Breast Changes, Galactorrhea, Hair Pattern Changes, Hot Flashes , Malaise/lethargy, Mood Swings, Palpitations, Polydipsia/polyuria, Skin Changes , Temperature Intolerance, Unexpected Weight Changes Respiratory: YES: SOB with excertion; No: Cough, Hemoptysis, Orthopnea, Pleuritic Pain, Shortness of breath, Sputum Changes, Stridor, Tachypnea, Wheezing Cardiovascular: yes Chest Pain, yes Lt Headedness; No Palpitations, No Orthopnea, No Paroxysmal Noc. Dyspnea, No Edema Gastrointestinal: No Nausea, No Vomiting, No Abdominal Pain, No Diarrhea, No Constipation, No Melena, No Hematochezia Genitourinary: No Dysuria, No Frequency, No Incontinence, No Hematuria, No Retention, No Discharge, No Urgency, No Pain, No Flank Pain Musculoskeletal: No Gait Disturbance, No Joint Pain, No Joint Stiffness, No Joint Swelling, No Muscle Pain, No Muscular Weakness, No Pain In:, No Swelling In: Neurological: No Behavorial Changes, No Bowel/Bladder ControlChng, No Confusion , No Dizziness, No Gait Disturbance, No Headaches, No Impaired Coord/balance, No Memory Loss, No Numbness/Tingling, No Seizures, No Speech Problems, No Tremors, No Visual Changes, No Weakness Skin: No Dry Skin, No Eczema, No Hair Changes, No Lumps, No Mole Changes, No Mottling, No Nail Changes, No Pruritus, No Rash, No Skin Lesion Changes, No Acne Physical Exam General: Alert, Oriented X3, No acute distress HEENT: Atraumatic, PERRLA Lungs: Clear to auscultation Heart: S1S2, RRR, no thrills, murmurs Abdomen: Normal bowel sounds, Soft, No tenderness Rectal Exam: deferred Extremities: No edema Skin: No significant lesion Neuro: Normal gait, Normal speech, Strength at 5/5 X4 ext, Normal tone, Sensation intact, Cranial nerves 3-12 NL, Reflexes 2+ Psych/Mental Status: Mental status NL VTE Prophylaxis Ordered VTE Prophylaxis Devices: Yes VTE Pharmacological Prophylaxi: No Assessment/Plan Assessment/Plan 57-year-old male with severe aortic valve stenosis, presenting with syncopes, CHF, and angina. ECHO shows a mean gradient of 50mmHg, an aortic valve area of 0.8 cm, and a velocity of 4.2. Ejection fraction is preserved and the rest of the valves are functioning well. His coronary arteries are clean. I had a long discussion with Mr. Jimenez, his his niece who accompany him. We went over the various valve options and the patient has opted for a bioprosthesis. I explained the risks which include but are not limited to mortality 2%, stroke 1-2%, renal failure requiring dialysis 1-2%, wound infection 5%, pneumonia 5%, ventilator dependence 5%, re-sternotomy for bleeding 5%, need for permanent pacemaker 10%, arrhythmias 20-30%. Patient except these risks and agrees to proceed. Proceed with bioprosthetic AVR TERRA CALDERON MD Dec 12, 2017 12:33
[~2017-12-13] VITALS: Ht 170.2 cm; Wt 96.2 kg
[~2017-12-13 05:51] MED LIST: ASPI-612 PO; ATOR40TA59 PO; CELE200C PO; CIPR500T94 PO; LISI-130 PO; METO25TA4 PO; SIMV40TA3 PO; VALS320T2 PO
[2017-12-13] MEDS ORDERED: TRANEXAMIC ACID 1,000 MG in IV NORMAL SALINE 50ML 50 ML INJ ONE (06:00)
[2017-12-13] MEDS ORDERED: SURGICEL HEMOSTAT 4X8 EACH. ONE (06:36)
[2017-12-13] MEDS ORDERED: VANCOMYCIN 10GM VIAL for OR. ONE (06:36)
[2017-12-13] MEDS ORDERED: MIDAZOLAM HCL/PF 2 MG/2 ML VIAL. ONE (06:41)
[2017-12-13] MEDS ORDERED: ETOMIDATE 20 MG/10 ML VIAL. IV ONE (06:41)
[2017-12-13] MEDS ORDERED: AMINOCAPROIC ACID 5,000 MG/20 ML VIAL. IV ONE (06:41)
[2017-12-13] MEDS ORDERED: SUFentanil 100 MCG/2 ML AMPUL. ONE (06:41)
[2017-12-13] MEDS ORDERED: ROCURONIUM 100 MG/10 ML VIAL. ONE ×2 (06:42→09:53)
[2017-12-13] MEDS ORDERED: PHENYLEPHRINE 10 MG/ML VIAL. ONE (06:43)
[2017-12-13] MEDS ORDERED: HEPARIN 30,000 UNIT/30 ML VIAL. ONE ×3 (06:46→12:13)
[2017-12-13] MEDS ORDERED: PROCHLORPERAZINE 10 MG/2 ML VIAL. IV PRN ×2 (07:00→12:45)
[2017-12-13] MEDS ORDERED: ONDANSETRON PF 4 MG/2 ML VIAL. IV PRN ×2 (07:00→12:45)
[2017-12-13] MEDS ORDERED: fentaNYL PF VIAL 100 MCG/2 ML VIAL IV PRN ×2 (07:00)
[2017-12-13] MEDS ORDERED: IV RINGERS,LACTATED 1000ML 1,000 ML IV SCH ×2 (07:00→12:42)
[2017-12-13] MEDS ORDERED: MORPHINE SULFATE 2 MG/ML DISP.SYRIN. IV PRN (07:00)
[2017-12-13] MEDS ORDERED: LIDOCAINE 1% PF 2 ML VIAL. ID PRN (07:00)
[2017-12-13] MEDS ORDERED: POTASSIUM CHLORIDE 15 MEQ, SODIUM BICARBONATE VIAL 12.5 MEQ in IV ELECTROLYTE-S (PH 7.4... IRR ONE (08:00)
[2017-12-13] MEDS ORDERED: POTASSIUM CHLORIDE 70 MEQ, SODIUM BICARBONATE VIAL 12.5 MEQ, LIDOCAINE 2% 24 ML in IV E... IRR ONE (08:00)
[2017-12-13] MEDS ORDERED: ePHEDrine PF IN SALINE 50 MG/5 ML DISP.SYRIN IV ONE (08:15)
[2017-12-13] MEDS ORDERED: DEXAMETHASONE SOD PHOS 20 MG/5 ML VIAL. ONE (09:06)
[2017-12-13] MEDS ORDERED: ISOFLURANE 61 TO 120 MINUTES. IH ONE (09:06)
[2017-12-13] MEDS ORDERED: PROPOFOL 50 ML IV ONE ×2 (09:08→11:23)
[2017-12-13] MEDS ORDERED: ceFAZolin SODIUM 1 GM VIAL ONE ×2 (09:28)
[2017-12-13] MEDS ORDERED: PROTAMINE 250 MG/25 ML VIAL IV ONE ×2 (10:09)
[2017-12-13] MEDS ORDERED: LIDOCAINE 2% PF Vial for OR 5 ML VIAL. ONE ×4 (11:42→12:58)
[2017-12-13] MEDS ORDERED: CALCIUM CHLORIDE 1,000 MG/10 ML DISP.SYRIN ONE ×2 (11:57→12:07)
[2017-12-13] MEDS ORDERED: fentaNYL PF VIAL 100 MCG/2 ML VIAL ONE (12:00)
[2017-12-13] MEDS ORDERED: ALBUMIN HUMAN 25% 100 ML IV ONE (12:07)
[2017-12-13] MEDS ORDERED: MANNITOL 25% 12.5 G/50 ML VIAL FOR OR. ONE (12:07)
[2017-12-13] MEDS ORDERED: MAGNESIUM SULFATE 5 GM/10 ML VIAL. ONE ×2 (12:07→12:13)
[2017-12-13 12:34] LABS: HEMATOCRIT 31.7 % (39.0-53.0)
[2017-12-13 12:37] LABS: WHITE BLOOD COUNT 15.8 x10^3/uL (4.0-11.0)
[2017-12-13 12:44] LABS: PROTHROMBIN TIME PATIENT 19.4 SEC (11.7-14.0)
[2017-12-13] MEDS ORDERED: BISACODYL 10 MG SUPP.RECT. PR PRN (12:45)
[2017-12-13] MEDS ORDERED: PROPOFOL 100 ML IV PRN (12:45)
[2017-12-13] MEDS ORDERED: ELECTROLYTE (ICU) PROTOCOL. MC PRN (12:45)
[2017-12-13] MEDS ORDERED: ACETAMINOPHEN 650 MG SUPP.RECT. PR PRN (12:45)
[2017-12-13] MEDS ORDERED: MAGNESIUM SULFATE 1GM 100 ML IV PRN (12:45)
[2017-12-13] MEDS ORDERED: DEXTROSE 50% 25 GM / 50ML DISP.SYRIN. IV PRN (12:45)
[2017-12-13] MEDS ORDERED: INSULIN REGULAR VIAL 150 UNIT in 0.9 % SODIUM CHLORIDE 150ML 150 ML IV PRN (12:45)
[2017-12-13] MEDS ORDERED: ALBUTEROL SULFATE 2.5 MG/3 ML NEBU. NEB PRN (12:45)
[2017-12-13] MEDS ORDERED: 0.9 % SODIUM CHLORIDE 10 ML DISP.SYRIN. IV PRN (12:45)
--- NOTE | 2017-12-13 13:29 | PDOC ---
BRIEF OPERATIVE NOTE Date: Dec 13, 2017 Pre-Op Diagnosis Severe aortic valve stenosis Congestive heart failure Syncope Hypertension Post-Op Diagnosis Severe aortic valve stenosis Congestive heart failure Syncope Hypertension Procedure Performed Aortic valve replacement (bioprosthesis, 21mm Magna Ease) Surgeon Terra Calderon MD Printmaker AUGUST Williamson Anesthesiologist Dr Ventura Anesthesia Type: General Blood Loss Cellsaver IV Fluid Crystalloid: 900 mls Urine Output 550 mls Specimens Obtained Aortic valve leaflet Findings Preop DAGOBERTO: MG 50mmHg Postop DAGOBERTO: MG 20mmHg, no paravalvular leak, normal LV function Off CPB without inotropes Complications None Operative Note CPB time: 113 min x-clamp time: 91 min TERRA CALDERON MD Dec 13, 2017 13:29
[2017-12-13] MEDS ORDERED: AMIODARONE 150 MG in IV DEXTROSE 5% 100ML 100 ML IV ONE (13:30)
[2017-12-13] MEDS ORDERED: AMIODARONE 900 MG in IV DEXTROSE 5% 500 ML IV PRN (13:30)
--- NOTE | 2017-12-13 13:31 | PDOC4 ---
Operative Note Operative Note Date Dec 13, 2017 Preoperative diagnosis Severe aortic valve stenosis Congestive heart failure Syncope Hypertension Postoperative diagnosis Severe aortic valve stenosis Congestive heart failure Syncope Hypertension Procedure Aortic valve replacement (bioprosthesis, 21mm Magna Ease) Surgeon Terra Calderon MD National Business Director AUGUST Williamson Anesthesiologist Dr Ventura Anesthesia type General Blood loss Cellsaver IV fluids Crystalloid: 900 mls Urine output 550 mls Specimens obtained Aortic valve leaflet Findings Preop DAGOBERTO: MG 50mmHg Postop DAGOBERTO: MG 20mmHg, no paravalvular leak, normal LV function Off CPB without inotropes Complications None Additional remarks CPB time: 113 min x-clamp time: 91 min Indication Mr Jimenez is a pleasant 57 year old male, who comes who has severe aortic valve stenosis. The patient has a three-year history of intermittent syncopes. He also complains of occasional angina and shortness of breath on minimal exertion. He was admitted after a near syncope and CHF 2 weeks ago. An echo at that time demonstrated mean gradient across the aortic valve of 50mmHg, an aortic valve area of 0.8 cm, and a velocity of 4.2, consistent with severe aortic valve stenosis. Ejection fraction is preserved and the rest of the valves are functioning well. He also had coronary angiography which was essentially normal. A left heart cath showed increased LVEDP of 35mmHg. Operation A sternotomy incision was performed. The pericardium was suspended. Heparin was given. Pre CPB DAGOBERTO showed critical with mean gradient 50mm Hg. The patient was cannulated through the ascending aorta and right atrium. A bifurcated root vent / antegrade cardioplegia cannula was placed in the ascending aorta. A retrograde cardiolplegia cannula was placed in the coronary sinus. Myocardial protection was achieved with antegrade and retrograde cardioplegia for induction and then every 20 minutes. The patient was placed on CPB and cooled to 34 celcius. The aorta was crossclamped and the heart was arrested. The aortotomy was made 1.5cm above the sinotubular junction and extended toward the non-coronary sinus. The valve was fused into a bicuspid and severely calcified. There was moderate calcification of the annulus. The leaflets were resected and complete decalcification of the annulus was performed. The annulus was of modest size. The LV cavity was irrigated of debris. A 21 mm pericardial prosthesis was seated in the suprannular position with 15 pledgeted sutures of 2-0 Ethibond. The seating was satisfactory. The tying was done with the Cor-Knot system. The aortotomy was closed in 2 layers of 4-0 Prolene. Prior to completing the aortotomy closure, the heart was deaired. The crossclamp was removed and the heart was allowed to rewarm and reperfuse. The patient came off bypass without inotropic support, after DC cardioversion from VFib. Temporary atrial and ventricular pacing wires were placed. Post cardiopulmonary bypass DAGOBERTO demonstrated no gradient across the aortic valve, no paravalvular leak, normal LV function. The chest was drained with 2 mediastinal chest tubes. Heparin was reversed with protamine. The heart was de-cannulated. There was some bleeding from the retrograde cannula site. The right atrium was very thin. I repaired this bleeding point with a 4-0 prolene pledgetted suture. Hemostasis was confirmed. Sternotomy was closed with seven stainless steel wires. The wound was closed in layers, 0 vicryl for fascia and 2-0 vicryl for deep dermis. The epidermis was closed with 4-0 monocryl. A sterile dressing was applied. At the end of the procedure, the instrument, needle and sponge counts were correct. The patient was transferred to the ICU in critical condition. There were no complications. CPB time was 113 min and x-clamp time was 91 min. TERRA CALDERON MD Dec 13, 2017 13:31
[2017-12-13 13:39] LABS: ART BE ISTAT 1 mmol/L (0-3); ART GLUC ISTAT 119 mg/dL (70-99); ART HCO3 ISTAT 25 mmol/L (21-28); ART HCT ISTAT 33 % (37-52); ART HGB ISTAT 11.2 g/dL (14-18); ART ION CA ISTAT 1.09 mmol/L (1.13-1.32); ART K ISTAT 5.1 mmol/L (3.5-5.0); ART NA ISTAT 139 mmol/L (135-145); ART PCO2 ISTAT 40 mmHg (35-45); ART PH ISTAT 7.41 (7.35-7.45); ART PO2 ISTAT 262 mmHg (75-100); ART SAT O2 SAT 100 % (95-99); ART TCO2 ISTAT 26 mmol/L (21-32)
[2017-12-13 13:39] LABS: ART BE ISTAT 0 mmol/L (0-3); ART GLUC ISTAT 139 mg/dL (70-99); ART HCO3 ISTAT 26 mmol/L (21-28); ART HCT ISTAT 33 % (37-52); ART HGB ISTAT 11.2 g/dL (14-18); ART K ISTAT 4.9 mmol/L (3.5-5.0); ART NA ISTAT 139 mmol/L (135-145); ART PCO2 ISTAT 50 mmHg (35-45); ART PH ISTAT 7.32 (7.35-7.45); ART PO2 ISTAT 262 mmHg (75-100); ART SAT O2 SAT 100 % (95-99); ART TCO2 ISTAT 27 mmol/L (21-32)
[2017-12-13 13:39] LABS: ART BE ISTAT -2 mmol/L (0-3); ART GLUC ISTAT 113 mg/dL (70-99); ART HCO3 ISTAT 23 mmol/L (21-28); ART HCT ISTAT 29 % (37-52); ART HGB ISTAT 9.9 g/dL (14-18); ART K ISTAT 4.3 mmol/L (3.5-5.0); ART NA ISTAT 139 mmol/L (135-145); ART PCO2 ISTAT 41 mmHg (35-45); ART PH ISTAT 7.36 (7.35-7.45); ART PO2 ISTAT 186 mmHg (75-100); ART SAT O2 SAT 100 % (95-99); ART TCO2 ISTAT 24 mmol/L (21-32)
[2017-12-13 13:39] LABS: ART BE ISTAT -1 mmol/L (0-3); ART GLUC ISTAT 145 mg/dL (70-99); ART HCO3 ISTAT 26 mmol/L (21-28); ART HCT ISTAT 33 % (37-52); ART HGB ISTAT 11.2 g/dL (14-18); ART ION CA ISTAT 1.22 mmol/L (1.13-1.32); ART K ISTAT 4.6 mmol/L (3.5-5.0); ART NA ISTAT 140 mmol/L (135-145); ART PCO2 ISTAT 52 mmHg (35-45); ART PO2 ISTAT 228 mmHg (75-100); ART SAT O2 SAT 100 % (95-99); ART TCO2 ISTAT 27 mmol/L (21-32)
[2017-12-13 13:39] LABS: ART BE ISTAT 2 mmol/L (0-3); ART GLUC ISTAT 109 mg/dL (70-99); ART HCO3 ISTAT 26 mmol/L (21-28); ART HCT ISTAT 40 % (37-52); ART HGB ISTAT 13.6 g/dL (14-18); ART ION CA ISTAT 1.25 mmol/L (1.13-1.32); ART K ISTAT 4.4 mmol/L (3.5-5.0); ART NA ISTAT 141 mmol/L (135-145); ART PCO2 ISTAT 41 mmHg (35-45); ART PH ISTAT 7.41 (7.35-7.45); ART PO2 ISTAT 346 mmHg (75-100); ART SAT O2 SAT 100 % (95-99); ART TCO2 ISTAT 27 mmol/L (21-32)
[2017-12-13 13:39] LABS: ART BE ISTAT -2 mmol/L (0-3); ART GLUC ISTAT 139 mg/dL (70-99); ART HCO3 ISTAT 24 mmol/L (21-28); ART HCT ISTAT 31 % (37-52); ART HGB ISTAT 10.5 g/dL (14-18); ART ION CA ISTAT 1.18 mmol/L (1.13-1.32); ART K ISTAT 4.7 mmol/L (3.5-5.0); ART NA ISTAT 139 mmol/L (135-145); ART PCO2 ISTAT 47 mmHg (35-45); ART PH ISTAT 7.33 (7.35-7.45); ART PO2 ISTAT 214 mmHg (75-100); ART SAT O2 SAT 100 % (95-99); ART TCO2 ISTAT 26 mmol/L (21-32)
[2017-12-13 13:39] LABS: ART BE ISTAT -3 mmol/L (0-3); ART GLUC ISTAT 93 mg/dL (70-99); ART HCO3 ISTAT 22 mmol/L (21-28); ART HCT ISTAT 39 % (37-52); ART HGB ISTAT 13.3 g/dL (14-18); ART ION CA ISTAT 1.53 mmol/L (1.13-1.32); ART K ISTAT 4.5 mmol/L (3.5-5.0); ART NA ISTAT 141 mmol/L (135-145); ART PCO2 ISTAT 40 mmHg (35-45); ART PH ISTAT 7.35 (7.35-7.45); ART PO2 ISTAT 156 mmHg (75-100); ART SAT O2 SAT 99 % (95-99); ART TCO2 ISTAT 23 mmol/L (21-32)
--- NOTE | 2017-12-13 13:49 | RAD ---
Portable chest, 12/13/2017: HISTORY: Postop evaluation Comparison is made to a study from 12/12/2017. A prosthetic aortic valve is now in place. The ET tube tip lies 9 cm above the kari at the level of the thoracic inlet. The NG tube tip tip lies in the distal esophagus near the GE junction. The right jugular Odell-Jay catheter tip lies at the level of the outflow tract of the right ventricle. Two mediastinal drains are in place. The heart size and pulmonary vascularity are normal. No pulmonary infiltrate is seen. There is no evidence of pleural fluid or pneumothorax. IMPRESSION: 1. Tube positions as described above. Of note is the high position of the NG tube with its tip lying in the distal esophagus. 2. No significant postoperative cardiopulmonary abnormality is detected. Electronically signed by: Billy Summers MD (12/13/2017 1:45 PM) [facility]
[2017-12-13] MEDS: MEPERIDINE PF 25 MG/ML VIAL. IV PRN ×2 (14:11→14:52)
--- NOTE | 2017-12-13 14:12 | CARD ---
MR#: [id number] Date of Study: 12/13/2017 Ordering Physician: TERRA CALDERON, Referring Physician: TERRA CALDERON Tech: Anat Fan RDCS APPROVED REPORT EXAM: Intraoperative DAGOBERTO INDICATION Aortic Valve Disease Surgery/Intervention Status/Post Aortic Valve Replacement: Bioprosthetic Date: 12/13/2017 Reason For Test : Evaluate prosthetic valve PROCEDURE After obtaining informed consent, patient underwent transesophageal echo in the Operating Room Type of Sedation : General Anesthesia The DAGOBERTO was performed without complications. Throughout the procedure, the blood pressure, pulse oximetry, cardiac rhythm, and rate were monitored . LEFT VENTRICLE The left ventricle is normal size. There is moderate to severe concentric left ventricular hypertroph y. The left ventricular systolic function is normal and the ejection fraction is within normal range. The Ejection Fraction is 55-60%. There is normal LV segmental wall motion. No left ventricle thrombu s noted on this study. RIGHT VENTRICLE The right ventricle is normal size. There is normal right ventricular wall thickness. The right ventr icular systolic function is normal. There is a PA catheter noted in the RA/RV. ATRIA The left atrium is mildly dilated. The right atrium size is normal. The interatrial septum is intact with no evidence for an atrial septal defect or patent foramen ovale as noted on 2-D or Doppler imagi ng. There is no thrombus noted in the left atrial appendage. AORTIC VALVE Heavily calcified probably functional bicuspid aortic valve. Doppler and Color Flow revealed no signi ficant aortic regurgitation. There is severe valvular aortic stenosis. MG 50 mm Hg. Post AVR, the bonnie ve gradient was approximately 20 mm Hg. 21 mm - Bioprosthesis leaflets are thin and move normally. MITRAL VALVE The mitral valve is normal in structure and function. There is no evidence of mitral valve prolapse. There is no mitral valve stenosis. Doppler and Color-flow revealed trace mitral regurgitation. TRICUSPID VALVE The tricuspid valve is normal in structure and function. Doppler and Color Flow revealed no tricuspid valve regurgitation noted. There is no tricuspid valve stenosis. PULMONIC VALVE The pulmonary valve is normal in structure and function. Doppler and Color Flow revealed no pulmonic valvular regurgitation. There is no pulmonic valvular stenosis. GREAT VESSELS The aortic root is normal in size. The ascending aorta is mildly dilated at 3.4 cm. The IVC is normal in size and collapses >50% with inspiration. Critical Notification Critical Value: No <Conclusion> There is moderate to severe concentric left ventricular hypertrophy. The left ventricular systolic function is normal and the ejection fraction is within normal range. Th e Ejection Fraction is 55-60%. There is a PA catheter noted in the RA/RV. Heavily calcified probably functional bicuspid aortic valve. There is severe valvular aortic stenosis. MG 50 mm Hg. Post AVR, the valve gradient was approximately 20 mm Hg. 21 mm - Bioprosthesis leaflets are thin and move normally. The ascending aorta is mildly dilated at 3.4 cm. Signed by : Sae Mata, Electronically Approved : 12/13/2017 13:29:35
[2017-12-13 14:15] LABS: BASE EXCESS COOX -8 mmol/L (-3-3); HCO3 COOX 20 mmol/L (21-28); METHEMOGLOBIN 0.4 % (0.0-1.9); OXYHEMOGLOBIN 97.9 %; PCO2 COOX 48 mmHg (35-46); PO2 COOX 187 mmHg (75-108); SAT O2 COOX 99 % (92-99)
[2017-12-13 14:17] LABS: HEMATOCRIT 43.9 % (39.0-53.0); RED BLOOD COUNT 4.81 x10^6/uL (4.30-5.70); RED CELL DISTRIBUTION WIDTH 13.3 % (11.5-14.5); WHITE BLOOD COUNT 27.8 x10^3/uL (4.0-11.0)
[2017-12-13] MEDS: MORPHINE SULFATE 2 MG/ML DISP.SYRIN. IV PRN ×4 (14:21→23:27)
--- NOTE | 2017-12-13 14:23 | EKG ---
[facility] [address] [place] [address] Test Date: 2017-12-13 Test Time: 14:18:11 Pat Name: KULWINDER BLUNT Department: Room: 105 1 Gender: M Recruiting Coordinator: JESSICA : 1960 Requested By: GOVIND LORA Order Number: [id number] Reading MD: Measurements Intervals [place] Rate: 103 P: 47 MA: 154 QRS: 59 QRSD: 80 T: 155 QT: 340 QTc: 447 Interpretive Statements SINUS TACHYCARDIA LEFT ATRIAL ABNORMALITY LVH WITH REPOLARIZATION ABNORMALITY ABNORMAL ECG RI6.01 Compared to ECG 11/20/2017 20:59:05 Incomplete right bundle-branch block no longer present
[2017-12-13 14:26] LABS: CALCIUM 9.5 mg/dL (8.5-10.1); CREATININE 1.1 mg/dL (0.7-1.3); MAGNESIUM 2.5 mg/dL (1.8-2.4); POTASSIUM 4.9 mmol/L (3.5-5.1)
[2017-12-13 14:27] LABS: PROTHROMBIN TIME PATIENT 16.1 SEC (11.7-14.0)
[2017-12-13] MEDS ORDERED: SODIUM BICARB ADULT 8.4% 50 MEQ/50 ML DISP.SYRIN. IV ONE ×2 (14:30→17:30)
[2017-12-13] MEDS: ALBUMIN HUMAN 5% 250 ML IV PRN ×3 (14:36→18:29)
[2017-12-13 15:20] LABS: BASE EXCESS ABG -3 mmol/L (-3-3); HCO3 ABG 22 mmol/L (21-28); PCO2 ABG 39 mmHg (35-46); PO2 ABG 125 mmHg (75-108); SAT O2 ABG 98 % (92-99)
[2017-12-13 15:22] LABS: FIO2 ABG 50
[2017-12-13 18:06] LABS: HEMATOCRIT 35.6 % (39.0-53.0); HEMOGLOBIN 12.1 g/dL (13.0-17.5); RED BLOOD COUNT 3.91 x10^6/uL (4.30-5.70); WHITE BLOOD COUNT 17.2 x10^3/uL (4.0-11.0)
[2017-12-13] MEDS: oxyCODONE/APAP 5/325 1 TAB TABLET PO PRN ×3 (18:47→21:48)
[2017-12-13 19:00] VITALS: BP 100/64
[2017-12-13 20:00] VITALS: BP_SYST 105; BP_SYST 107; BP_DIAS 51; BP_DIAS 56
[2017-12-13] MEDS: ATORVASTATIN CALCIUM 40 MG TABLET. PO SCH (20:36)
[2017-12-13] MEDS: SENNOSIDES/DOCUSATE 8.6/50MG TABLET. PO SCH (20:37)
[2017-12-13] MEDS: FAMOTIDINE 20 MG/2 ML VIAL IVP SCH (20:37)
[2017-12-13 21:00] VITALS: BP 107/61
[2017-12-13] MEDS ORDERED: CHLORHEXIDINE 0.12% 15 ML MOUTHWASH. MM SCH (21:00)
[2017-12-13 22:00] VITALS: BP 99/48
[2017-12-13 23:00] VITALS: BP 105/56
[2017-12-14] VITALS (20 sets, daily range): BP systolic 59–128; BP diastolic 45–72
[2017-12-14] MEDS: oxyCODONE/APAP 5/325 1 TAB TABLET PO PRN ×6 (00:14→19:59)
[2017-12-14] MEDS: MORPHINE SULFATE 2 MG/ML DISP.SYRIN. IV PRN ×3 (01:16→10:13)
--- NOTE | 2017-12-14 03:01 | EKG ---
[facility] [address] [place] [address] Test Date: 2017-12-14 Test Time: 02:04:49 Pat Name: KULWINDER BLUNT Department: Room: 105 1 Gender: M Corn Husk Baler: ANNA : 1960 Requested By: GOVIND LORA Order Number: [id number] Reading MD: Measurements Intervals [place] Rate: 96 P: 5 MT: 168 QRS: 28 QRSD: 80 T: 167 QT: 366 QTc: 469 Interpretive Statements SINUS RHYTHM LEFT ATRIAL ABNORMALITY INCOMPLETE RIGHT BUNDLE BRANCH BLOCK ST & T ABNORMALITY, CONSIDER RECENT ANTEROSEPTAL MYOCARDIAL OR PERICARDIAL DAMAGE ABNORMAL ECG RI6.01 Compared to ECG 11/20/2017 20:59:05 T-wave abnormality now present Sinus tachycardia no longer present Left ventricular hypertrophy no longer present Early repolarization no longer present
[2017-12-14 05:54] LABS: CALCIUM 8.4 mg/dL (8.5-10.1); CREATININE 1.3 mg/dL (0.7-1.3); GFR 56.9; POTASSIUM 4.7 mmol/L (3.5-5.1)
[2017-12-14 06:03] LABS: HEMATOCRIT 33.5 % (39.0-53.0); HEMOGLOBIN 11.5 g/dL (13.0-17.5); RED BLOOD COUNT 3.65 x10^6/uL (4.30-5.70); RED CELL DISTRIBUTION WIDTH 13.4 % (11.5-14.5); WHITE BLOOD COUNT 15.5 x10^3/uL (4.0-11.0)
[2017-12-14] MEDS ORDERED: MAGNESIUM SULFATE 1GM 100 ML IV ONE (07:00)
[2017-12-14] MEDS: FAMOTIDINE 20 MG/2 ML VIAL IVP SCH (07:36)
[2017-12-14] MEDS: ASPIRIN ENTERIC COATED 325 MG TABLET.DR. PO SCH (07:36)
[2017-12-14] MEDS: SENNOSIDES/DOCUSATE 8.6/50MG TABLET. PO SCH ×2 (07:37→21:01)
--- NOTE | 2017-12-14 07:51 | RAD ---
Portable chest, 12/14/2017: HISTORY: Postop aortic valve surgery Comparison is made yesterday study. The ET tube, NG tube and [place]-Jay catheter have been removed. A right jugular vascular sheath and 2 medi[address] dra[address] remain in place. The heart size and pulmonary vascularity are within normal limits. There is a lesser depth of inspiration with mild streaky basilar opacities compatible with atelectasis. No definite pleural fluid is seen. There is no evidence of pneumothorax. IMPRESSION: Mild bibasilar atelectasis. Electronically signed by: Billy Summers MD (12/14/2017 7:47 AM) [facility]
--- NOTE | 2017-12-14 08:54 | PDOC2 ---
CARDIAC CONSULT DATE OF CONSULT Date of Consult DATE: 12/14/17 TIME: 08:53 REASON FOR CONSULT Reason for Consult: cardiac management REFERRING PHYSICIAN Referring Physician: Anna SOURCE Source: Chart review HISTORY OF PRESENT ILLNESS HISTORY OF PRESENT ILLNESS 57 year old male who underwent bioprosthetic AVR on 12/13/2017. Diagnosed with severe in 11/2017 after syncopal episode and NSTEMI. HILDA of 0.8 cm2 with max velocity of 4.2 m/sec and mean peak gradient of 48 mm Hg. PMH also includes HTN, HLD and chronic diastolic HF with LVEDP of 33 mm Hg on cardiac cath last month. Fast track extubation post-operatively and now up in chair. Reason for Visit: post -op cardiac management PAST MEDICAL HISTORY Cardiovascular: CHF (chronic diastolic), HTN, [place] (NSTEMI 11/2015 associated with syncope and severe ), Hyperlipidemia, Aortic stenosis (severe, symptomatic; s/p bioprosthetic AVR 12/13/2017) Pulmonary: No pertinent hx CENTRAL NERVOUS SYSTEM: Other (none) GI: No pertinent hx Heme/Onc: No pertinent hx Hepatobiliary: No pertinent hx Psych: No pertinent hx Musculoskeletal: Osteoarthritis Rheumatologic: No pertinent hx Infectious disease: No pertinent hx ENT: No pertinent hx Renal/: No pertinent hx Endocrine: No pertinent hx Dermatology: No pertinent hx PAST SURGICAL HISTORY Past Surgical History: Tonsillectomy, Other (C5-6 fusion after fracture; bioprosthetic AVR-12/13/2017) FAMILY HISTORY Family History negative for CAD SOCIAL HISTORY Smoke: <1 pack per day (since age 18) ALCOHOL: none Drugs: None Lives: with Family CURRENT MEDICATIONS CURRENT MEDICATIONS Current Medications Medications (Trade) Dose Ordered Sig/Laly Route PRN Reason Start Time Stop Time Status Last Admin Dose Admin Atorvastatin Calcium (Lipitor) 40 mg QHS PO 12/13/17 21:00 12/13/17 20:36 Ringer's Solution 1,000 ml @ 30 mls/hr Q24H IV 12/13/17 12:42 12/13/17 14:14 Albumin Human 250 ml @ 60 mls/hr PRN Q4HRS PRN IV SEE I/O RECORD 12/13/17 12:45 12/13/17 18:29 Famotidine (Pepcid Vial) 20 mg BID IVP 12/13/17 21:00 12/14/17 07:36 Ondansetron HCl (Zofran) 4 mg PRN Q4HRS PRN IV NAUSEA/VOMITING 12/13/17 12:45 12/13/17 20:10 Morphine Sulfate (Morphine Sulfate) 2 mg PRN Q1HR PRN IV PAIN 12/13/17 12:45 12/14/17 05:36 Meperidine HCl (Demerol) 12.5 mg PRN Q15MIN PRN IV SHIVERING 12/13/17 12:45 12/13/17 14:52 DC 12/13/17 14:52 Senna/Docusate Sodium (Senna Plus) 1 tab BID PO 12/13/17 21:00 12/14/17 07:37 Oxycodone/ Acetaminophen (Percocet 5/325) 1 tab PRN Q4HRS PRN PO MILD PAIN 12/13/17 12:45 12/13/17 21:48 Oxycodone/ Acetaminophen (Percocet 5/325) 2 tab PRN Q4HRS PRN PO MODERATE PAIN, SEVERE PAIN 12/13/17 12:45 12/14/17 07:37 Cefazolin Sodium/ Dextrose 50 ml @ 100 mls/hr Q8H IV 12/13/17 20:00 12/15/17 04:29 12/14/17 03:28 Aspirin (Ecotrin) 325 mg [id number] PO 12/14/17 08:00 12/14/17 07:36 Amiodarone HCl 150 mg/Dextrose 103 ml @ 618 mls/hr 1X ONCE IV 12/13/17 13:30 12/13/17 13:39 DC 12/13/17 14:12 Amiodarone HCl 900 mg/Dextrose 518 ml @ 0 mls/hr CONT PRN IV SEE I/O RECORD 12/13/17 13:30 12/13/17 14:14 DC 12/13/17 14:13 Sodium Bicarbonate (Sodium Bicarb Adult 8.4% Syr) 100 meq 1X ONCE IV 12/13/17 14:30 12/13/17 14:31 DC 12/13/17 14:22 Sodium Bicarbonate (Sodium Bicarb Adult 8.4% Syr) 50 meq 1X ONCE IV 12/13/17 17:30 12/13/17 17:31 DC 12/13/17 17:23 Magnesium Sulfate/ Dextrose 100 ml @ 100 mls/hr 1X ONCE IV 12/14/17 07:00 12/14/17 07:59 DC 12/14/17 07:31 ALLERGIES ALLERGIES: Coded Allergies: No Known Drug Allergies (Unverified , 12/13/17) ROS General: YES: Fatigue, Malaise PSYCHOLOGICAL ROS: No: Anxiety, Behavioral Disorder, Concentration difficultie , Decreased libido, Depression, Disorientation, Hallucinations, Hostility, Irritablity, Memory difficulties, Mood Swings, Obsessive thoughts, Physical abuse, Sexual abuse, Sleep disturbances, Suicidal ideation, Other Eyes: Yes Uses glasses; No Blurry vision, No Decreased vision, No Double vision, No Dry eyes, No Excessive tearing, No Eye Pain, No Itchy Eyes, No Loss of vision, No Photophobia , No Scotomata, No Uses contacts, No Other HEENT: No: Heacaches, Visual Changes, Hearing change, Nasal congestion, Nasal discharge, Oral lesions, Sinus pain, Sore Throat, Epistaxis, Sneezing, Snoring, Tinnitus, Vertigo, Vocal changes, Other ALLERGY AND IMMUNOLOGY: No: Hives, Insect Bite Sensitivity, Itchy/Watery Eyes, Nasal Congestion, Post Nasal Drip, Seasonal Allergies, Other Hematological and Lymphatic: No: Bleeding Problems, Blood Clots, Blood Transfusions, Brusing, Night Sweats, Pallor, Swollen Lymph Nodes, Other ENDOCRINE: No: Breast Changes, Galactorrhea, Hair Pattern Changes, Hot Flashes , Malaise/lethargy, Mood Swings, Palpitations, Polydipsia/polyuria, Skin Changes , Temperature Intolerance, Unexpected Weight Changes, Other Respiratory: No: Cough, Hemoptysis, Orthopnea, Pleuritic Pain, Shortness of breath, SOB with excertion, Sputum Changes, Stridor, Tachypnea, Wheezing, Other Cardiovascular: yes Other (incisional pain ); No Chest Pain, No Palpitations, No Orthopnea, No Paroxysmal Noc. Dyspnea, No Edema, No Lt Headedness Gastrointestinal: Yes Other (appetite poor post-op ); No Nausea, No Vomiting, No Abdominal Pain, No Diarrhea, No Constipation, No Melena, No Hematochezia Genitourinary: No Dysuria, No Frequency, No Incontinence, No Hematuria, No Retention, No Discharge, No Urgency, No Pain, No Flank Pain, No Other Musculoskeletal: No Gait Disturbance, No Joint Pain, No Joint Stiffness, No Joint Swelling, No Muscle Pain, No Muscular Weakness, No Pain In:, No Swelling In:, No Other Neurological: No Behavorial Changes, No Bowel/Bladder ControlChng, No Confusion , No Dizziness, No Gait Disturbance, No Headaches, No Impaired Coord/balance, No Memory Loss, No Numbness/Tingling, No Seizures, No Speech Problems, No Tremors, No Visual Changes, No Weakness, No Other Skin: No Dry Skin, No Eczema, No Hair Changes, No Lumps, No Mole Changes, No Mottling, No Nail Changes, No Pruritus, No Rash, No Skin Lesion Changes, No Other, No Acne PHYSICAL EXAM General: Alert, Oriented X3, Cooperative HEENT: Atraumatic Lungs: Other (diminished in bases; mediastinal tubes X 2) Heart: Normal S1, Normal S2, Other (soft mumur LSB; pacing wires intact; right cordis without erythema, drainage - dressing intact) Abdomen: Soft Extremities: Normal pulses, Other (trace edema) Skin: Other (dressing intact over mediastinal incision) Psych/Mental Status: Mental status NL, Mood NL MUSCULOSKELETAL: No deformity VITALS VITALS Vital Signs Date Time Temp Pulse Resp B/P (MAP) Pulse Ox O2 Delivery O2 Flow Rate FiO2 12/14/17 08:05 Nasal Cannula 2.0 12/14/17 08:00 86 21 98/53 (68) 97 12/14/17 07:00 98.5 98.5 LABS Lab: Laboratory Tests Test 12/13/17 09:26 12/13/17 10:17 12/13/17 10:46 12/13/17 10:47 Activated Clotting Time 708 SEC (90-125) 856 SEC (90-125) 511 SEC (90-125) Bedside Hemoglobin (Calculated) 11.2 g/dL (14-18) 11.2 g/dL (14-18) Bedside Hematocrit 33 % (37-52) 33 % (37-52) Bedside Arterial pH 7.41 (7.35-7.45) 7.32 (7.35-7.45) Bedside Arterial pCO2 40 mmHg (35-45) 50 mmHg (35-45) Bedside Arterial pO2 262 mmHg (75-100) 262 mmHg (75-100) Bedside Arterial HCO3 25 mmol/L (21-28) 26 mmol/L (21-28) Bedside Arterial Total CO2 26 mmol/L (21-32) 27 mmol/L (21-32) Arterial Bld O2 Saturation (Measur) 100 % (95-99) 100 % (95-99) Bedside Arterial Blood Base Excess 1 mmol/L (0-3) 0 mmol/L (0-3) Bedside FiO2 70.0 70.0 Bedside Sodium 139 mmol/L (135-145) 139 mmol/L (135-145) Bedside Potassium 5.1 mmol/L (3.5-5.0) 4.9 mmol/L (3.5-5.0) Glucose Level 119 mg/dL (70-99) 139 mg/dL (70-99) Bedside Ionized Calcium (Cecy) 1.09 mmol/L (1.13-1.32) 1.20 mmol/L (1.13-1.32) Test 12/13/17 11:15 12/13/17 11:16 12/13/17 11:46 12/13/17 11:49 Activated Clotting Time 636 SEC (90-125) 447 SEC (90-125) Bedside Hemoglobin (Calculated) 11.2 g/dL (14-18) 10.5 g/dL (14-18) Bedside Hematocrit 33 % (37-52) 31 % (37-52) Bedside Arterial pH 7.30 (7.35-7.45) 7.33 (7.35-7.45) Bedside Arterial pCO2 52 mmHg (35-45) 47 mmHg (35-45) Bedside Arterial pO2 228 mmHg (75-100) 214 mmHg (75-100) Bedside Arterial HCO3 26 mmol/L (21-28) 24 mmol/L (21-28) Bedside Arterial Total CO2 27 mmol/L (21-32) 26 mmol/L (21-32) Arterial Bld O2 Saturation (Measur) 100 % (95-99) 100 % (95-99) Bedside Arterial Blood Base Excess -1 mmol/L (0-3) -2 mmol/L (0-3) Bedside FiO2 70.0 80.0 Bedside Sodium 140 mmol/L (135-145) 139 mmol/L (135-145) Bedside Potassium 4.6 mmol/L (3.5-5.0) 4.7 mmol/L (3.5-5.0) Glucose Level 145 mg/dL (70-99) 139 mg/dL (70-99) Bedside Ionized Calcium (Cecy) 1.22 mmol/L (1.13-1.32) 1.18 mmol/L (1.13-1.32) Test 12/13/17 12:20 12/13/17 12:25 12/13/17 13:13 12/13/17 14:10 Bedside Hemoglobin (Calculated) 9.9 g/dL (14-18) 13.3 g/dL (14-18) Bedside Hematocrit 29 % (37-52) 39 % (37-52) Activated Clotting Time 115 SEC (90-125) Bedside Arterial pH 7.36 (7.35-7.45) 7.35 (7.35-7.45) Bedside Arterial pCO2 41 mmHg (35-45) 40 mmHg (35-45) Bedside Arterial pO2 186 mmHg (75-100) 156 mmHg (75-100) Bedside Arterial HCO3 23 mmol/L (21-28) 22 mmol/L (21-28) Bedside Arterial Total CO2 24 mmol/L (21-32) 23 mmol/L (21-32) Arterial Bld O2 Saturation (Measur) 100 % (95-99) 99 % (95-99) Bedside Arterial Blood Base Excess -2 mmol/L (0-3) -3 mmol/L (0-3) Bedside FiO2 100.0 100.0 Bedside Sodium 139 mmol/L (135-145) 141 mmol/L (135-145) Bedside Potassium 4.3 mmol/L (3.5-5.0) 4.5 mmol/L (3.5-5.0) Glucose Level 113 mg/dL (70-99) 93 mg/dL (70-99) 146 mg/dL (70-99) Bedside Ionized Calcium (Cecy) 1.70 mmol/L (1.13-1.32) 1.53 mmol/L (1.13-1.32) White Blood Count 15.8 x10^3/uL (4.0-11.0) 27.8 x10^3/uL (4.0-11.0) Hemoglobin 11.0 g/dL (13.0-17.5) 15.0 g/dL (13.0-17.5) Hematocrit 31.7 % (39.0-53.0) 43.9 % (39.0-53.0) Platelet Count 102 x10^3/uL (140-400) 133 x10^3/uL (140-400) Prothrombin Time 19.4 SEC (11.7-14.0) 16.1 SEC (11.7-14.0) Prothromb Time International Ratio 1.7 (0.8-1.1) 1.4 (0.8-1.1) Activated Partial Thromboplast Time 30 SEC (24-38) 33 SEC (24-38) Fibrinogen 207 mg/dL (200-440) Red Blood Count 4.81 x10^6/uL (4.30-5.70) Mean Corpuscular Volume 91 fL (79-100) Mean Corpuscular Hemoglobin 31 pg (25-35) Mean Corpuscular Hemoglobin Concent 34 g/dL (31-37) Red Cell Distribution Width 13.3 % (11.5-14.5) O2 Saturation 99 % (92-99) Arterial Blood pH 7.24 (7.35-7.45) Arterial Blood pCO2 at Patient Temp 48 mmHg (35-46) Arterial Blood pO2 at Patient Temp 187 mmHg (75-108) Arterial Blood HCO3 20 mmol/L (21-28) Arterial Blood Base Excess -8 mmol/L (-3-3) Oxyhemoglobin 97.9 % Methemoglobin 0.4 % (0.0-1.9) Carbon Monoxide, Quantitative 0.5 % (0.0-1.9) FiO2 60 Sodium Level 138 mmol/L (136-145) Potassium Level 4.9 mmol/L (3.5-5.1) Chloride Level 105 mmol/L (98-107) Carbon Dioxide Level 23 mmol/L (21-32) Anion Gap 10 (6-14) Blood Urea Nitrogen 17 mg/dL (8-26) Creatinine 1.1 mg/dL (0.7-1.3) Estimated GFR (Cockcroft-Gault) 69.0 Glucose (Fingerstick) 123 mg/dL (70-99) Calcium Level 9.5 mg/dL (8.5-10.1) Magnesium Level 2.5 mg/dL (1.8-2.4) Test 12/13/17 15:05 12/13/17 15:15 12/13/17 16:27 12/13/17 17:59 Glucose (Fingerstick) 124 mg/dL (70-99) 121 mg/dL (70-99) 130 mg/dL (70-99) O2 Saturation 98 % (92-99) Arterial Blood pH 7.38 (7.35-7.45) Arterial Blood pCO2 at Patient Temp 39 mmHg (35-46) Arterial Blood pO2 at Patient Temp 125 mmHg (75-108) Arterial Blood HCO3 22 mmol/L (21-28) Arterial Blood Base Excess -3 mmol/L (-3-3) FiO2 50 Test 12/13/17 18:03 12/13/17 20:03 12/14/17 05:28 12/14/17 05:30 White Blood Count 17.2 x10^3/uL (4.0-11.0) 15.5 x10^3/uL (4.0-11.0) Red Blood Count 3.91 x10^6/uL (4.30-5.70) 3.65 x10^6/uL (4.30-5.70) Hemoglobin 12.1 g/dL (13.0-17.5) 11.5 g/dL (13.0-17.5) Hematocrit 35.6 % (39.0-53.0) 33.5 % (39.0-53.0) Mean Corpuscular Volume 91 fL (79-100) 92 fL (79-100) Mean Corpuscular Hemoglobin 31 pg (25-35) 32 pg (25-35) Mean Corpuscular Hemoglobin Concent 34 g/dL (31-37) 35 g/dL (31-37) Red Cell Distribution Width 13.0 % (11.5-14.5) 13.4 % (11.5-14.5) Platelet Count 97 x10^3/uL (140-400) 95 x10^3/uL (140-400) Potassium Level 4.6 mmol/L (3.5-5.1) 4.7 mmol/L (3.5-5.1) Glucose (Fingerstick) 135 mg/dL (70-99) 125 mg/dL (70-99) Sodium Level 136 mmol/L (136-145) Chloride Level 104 mmol/L (98-107) Carbon Dioxide Level 25 mmol/L (21-32) Anion Gap 7 (6-14) Blood Urea Nitrogen 21 mg/dL (8-26) Creatinine 1.3 mg/dL (0.7-1.3) Estimated GFR (Cockcroft-Gault) 56.9 Glucose Level 136 mg/dL (70-99) Calcium Level 8.4 mg/dL (8.5-10.1) Magnesium Level 2.0 mg/dL (1.8-2.4) IMAGES IMAGES CXR: 12/14/2017: Comparison is made yesterday study. The ET tube, NG tube and [place] catheter have been removed. A right jugular vascular sheath and 2 medi[address] drains remain in place. The heart size and pulmonary vascularity are within normal limits. There is a lesser depth of inspiration with mild streaky basilar opacities compatible with atelectasis. No definite pleural fluid is seen. There is no evidence of pneumothorax. IMPRESSION: Mild bibasilar atelectasis. EKG EKG 12/13/2017: ST T wave inversions in multiple leads; primarily anterolateral ECHOCARDIOGRAM ECHOCARDIOGRAM 11/21/2017: TTE: <Conclusion> The systolic function is at the lower limits of normal. The Ejection Fraction is 50-55%. There is normal LV segmental wall motion. There is severe valvular aortic stenosis. The maximum doppler velocity is 4.2m/ sec, maximum Pg is 69mmHg, mean Pg is 48mmHg. The calculated aortic valve area is 0.8cm2. Technically difficult study. STRESS TEST STRESS TEST 11/21/2017: FINDINGS: HEMODYNAMICS: LVEDP 33 mm Hg AO: 119/70. RA: 14 RV: 57/18 PA: 60/34, mPA 45 mm Hg PCWP: 33 CO: 6.62 (Melody) FA Sat: 90% PA Sat: 70% Aortic mean gradient 50 mm Hg. LEFT VENTRICULOGRAM: EF 70% Anterobasal: Normal. Anterolateral: Normal Apical: Normal Diaphragmatic: Normal Posterobasal: Normal *No significant mitral regurgitation or aortic insufficiency. CORONARY ANGIOGRAPHY: LM is a large caliber vessel with normal angiographic appearance. LAD is a large caliber vessel with normal angiographic appearance. LCx is a large caliber dominant vessel with normal angiographic appearance. OM1 is a moderate caliber vessel with normal angiographic appearance. RCA is a small caliber non-dominant vessel with normal angiographic appearance. Conclusion 1. Severe biventricular pressure overload 2. Severe aortic stenosis (MG of 50 mm Hg) 3. Acute on chronic diastolic Heart failure (LVEDP 33 mm Hg) 4. NSTEMI 5. No significant coronary artery disease 6. Mild to moderate pulmonary HTN. mPA 45 mm Hg. ASSESSMENT/PLAN ASSESSMENT/PLAN 1. severe --s/p bioprosthetic AVR --fast track extubation and being mobilized --? transfer to [facility] later today --continue ASA; BB on hold due to low normotensive BP --management per CTS 2. chronic diastolic HF --diuretics per CTS 3. HTN --low normotensive 4. HLD --continue statin therapy GOVIND LORA UTILITY CLERK Dec 14, 2017 08:54
[2017-12-14] MEDS: METOPROLOL TART IMMED RELEASE 25 MG TABLET. PO SCH ×2 (09:00→21:02)
[2017-12-14] MEDS: FAMOTIDINE 20 MG TABLET. PO SCH ×2 (11:00→21:01)
[2017-12-14] MEDS: diphenhydrAMINE HCL 25 MG CAPSULE PO PRN (11:34)
--- NOTE | 2017-12-14 11:34 | PDOC ---
Progress Note Subjective Subjective Fast track extubation yesterday. Doing extremely well. Normotensive, SR. Minimal tube drainage. UO 30 mls/hr. Creat 1,3. CXR OK. [place] and a-line are out. ROS ROS No nausea No vomiting No pain No rash Vital Sign Vital Signs Vital Signs Date Time Temp Pulse Resp B/P (MAP) Pulse Ox O2 Delivery O2 Flow Rate FiO2 12/14/17 10:13 14 97 Nasal Cannula 2.0 12/14/17 09:00 83 87/45 (59) 12/14/17 07:00 98.5 98.5 Physical Exam PHYSICAL EXAM GENERAL: NAD, Alert HEENT: PERRL, OC/OP NECK: Supple, no JVD, no LN LUNGS: Clear HEART: S1S2, no gallop, no murmur ABD: Soft, NT, no organomegaly, no rebound EXT: No edema, no cyanosis [employer]PER[employer] ADMINISTRATOR: Alert, oriented x 3, no focal neurologic deficit SKIN: No rash IV: ok Labs Lab Laboratory Tests Test 12/13/17 11:46 12/13/17 11:49 12/13/17 12:20 12/13/17 12:25 Activated Clotting Time 447 SEC (90-125) 115 SEC (90-125) Bedside Hemoglobin (Calculated) 10.5 g/dL (14-18) 9.9 g/dL (14-18) Bedside Hematocrit 31 % (37-52) 29 % (37-52) Bedside Arterial pH 7.33 (7.35-7.45) 7.36 (7.35-7.45) Bedside Arterial pCO2 47 mmHg (35-45) 41 mmHg (35-45) Bedside Arterial pO2 214 mmHg (75-100) 186 mmHg (75-100) Bedside Arterial HCO3 24 mmol/L (21-28) 23 mmol/L (21-28) Bedside Arterial Total CO2 26 mmol/L (21-32) 24 mmol/L (21-32) Arterial Bld O2 Saturation (Measur) 100 % (95-99) 100 % (95-99) Bedside Arterial Blood Base Excess -2 mmol/L (0-3) -2 mmol/L (0-3) Bedside FiO2 80.0 100.0 Bedside Sodium 139 mmol/L (135-145) 139 mmol/L (135-145) Bedside Potassium 4.7 mmol/L (3.5-5.0) 4.3 mmol/L (3.5-5.0) Glucose Level 139 mg/dL (70-99) 113 mg/dL (70-99) Bedside Ionized Calcium (Cecy) 1.18 mmol/L (1.13-1.32) 1.70 mmol/L (1.13-1.32) White Blood Count 15.8 x10^3/uL (4.0-11.0) Hemoglobin 11.0 g/dL (13.0-17.5) Hematocrit 31.7 % (39.0-53.0) Platelet Count 102 x10^3/uL (140-400) Prothrombin Time 19.4 SEC (11.7-14.0) Prothromb Time International Ratio 1.7 (0.8-1.1) Activated Partial Thromboplast Time 30 SEC (24-38) Fibrinogen 207 mg/dL (200-440) Test 12/13/17 13:13 12/13/17 14:10 12/13/17 15:05 12/13/17 15:15 Bedside Hemoglobin (Calculated) 13.3 g/dL (14-18) Bedside Hematocrit 39 % (37-52) Bedside Arterial pH 7.35 (7.35-7.45) Bedside Arterial pCO2 40 mmHg (35-45) Bedside Arterial pO2 156 mmHg (75-100) Bedside Arterial HCO3 22 mmol/L (21-28) Bedside Arterial Total CO2 23 mmol/L (21-32) Arterial Bld O2 Saturation (Measur) 99 % (95-99) Bedside Arterial Blood Base Excess -3 mmol/L (0-3) Bedside FiO2 100.0 Bedside Sodium 141 mmol/L (135-145) Bedside Potassium 4.5 mmol/L (3.5-5.0) Glucose Level 93 mg/dL (70-99) 146 mg/dL (70-99) Bedside Ionized Calcium (Cecy) 1.53 mmol/L (1.13-1.32) White Blood Count 27.8 x10^3/uL (4.0-11.0) Red Blood Count 4.81 x10^6/uL (4.30-5.70) Hemoglobin 15.0 g/dL (13.0-17.5) Hematocrit 43.9 % (39.0-53.0) Mean Corpuscular Volume 91 fL (79-100) Mean Corpuscular Hemoglobin 31 pg (25-35) Mean Corpuscular Hemoglobin Concent 34 g/dL (31-37) Red Cell Distribution Width 13.3 % (11.5-14.5) Platelet Count 133 x10^3/uL (140-400) Prothrombin Time 16.1 SEC (11.7-14.0) Prothromb Time International Ratio 1.4 (0.8-1.1) Activated Partial Thromboplast Time 33 SEC (24-38) O2 Saturation 99 % (92-99) 98 % (92-99) Arterial Blood pH 7.24 (7.35-7.45) 7.38 (7.35-7.45) Arterial Blood pCO2 at Patient Temp 48 mmHg (35-46) 39 mmHg (35-46) Arterial Blood pO2 at Patient Temp 187 mmHg (75-108) 125 mmHg (75-108) Arterial Blood HCO3 20 mmol/L (21-28) 22 mmol/L (21-28) Arterial Blood Base Excess -8 mmol/L (-3-3) -3 mmol/L (-3-3) Oxyhemoglobin 97.9 % Methemoglobin 0.4 % (0.0-1.9) Carbon Monoxide, Quantitative 0.5 % (0.0-1.9) FiO2 60 50 Sodium Level 138 mmol/L (136-145) Potassium Level 4.9 mmol/L (3.5-5.1) Chloride Level 105 mmol/L (98-107) Carbon Dioxide Level 23 mmol/L (21-32) Anion Gap 10 (6-14) Blood Urea Nitrogen 17 mg/dL (8-26) Creatinine 1.1 mg/dL (0.7-1.3) Estimated GFR (Cockcroft-Gault) 69.0 Glucose (Fingerstick) 123 mg/dL (70-99) 124 mg/dL (70-99) Calcium Level 9.5 mg/dL (8.5-10.1) Magnesium Level 2.5 mg/dL (1.8-2.4) Test 12/13/17 16:27 12/13/17 17:59 12/13/17 18:03 12/13/17 20:03 Glucose (Fingerstick) 121 mg/dL (70-99) 130 mg/dL (70-99) 135 mg/dL (70-99) White Blood Count 17.2 x10^3/uL (4.0-11.0) Red Blood Count 3.91 x10^6/uL (4.30-5.70) Hemoglobin 12.1 g/dL (13.0-17.5) Hematocrit 35.6 % (39.0-53.0) Mean Corpuscular Volume 91 fL (79-100) Mean Corpuscular Hemoglobin 31 pg (25-35) Mean Corpuscular Hemoglobin Concent 34 g/dL (31-37) Red Cell Distribution Width 13.0 % (11.5-14.5) Platelet Count 97 x10^3/uL (140-400) Potassium Level 4.6 mmol/L (3.5-5.1) Test 12/14/17 05:28 12/14/17 05:30 Glucose (Fingerstick) 125 mg/dL (70-99) White Blood Count 15.5 x10^3/uL (4.0-11.0) Red Blood Count 3.65 x10^6/uL (4.30-5.70) Hemoglobin 11.5 g/dL (13.0-17.5) Hematocrit 33.5 % (39.0-53.0) Mean Corpuscular Volume 92 fL (79-100) Mean Corpuscular Hemoglobin 32 pg (25-35) Mean Corpuscular Hemoglobin Concent 35 g/dL (31-37) Red Cell Distribution Width 13.4 % (11.5-14.5) Platelet Count 95 x10^3/uL (140-400) Sodium Level 136 mmol/L (136-145) Potassium Level 4.7 mmol/L (3.5-5.1) Chloride Level 104 mmol/L (98-107) Carbon Dioxide Level 25 mmol/L (21-32) Anion Gap 7 (6-14) Blood Urea Nitrogen 21 mg/dL (8-26) Creatinine 1.3 mg/dL (0.7-1.3) Estimated GFR (Cockcroft-Gault) 56.9 Glucose Level 136 mg/dL (70-99) Calcium Level 8.4 mg/dL (8.5-10.1) Magnesium Level 2.0 mg/dL (1.8-2.4) Objective Assessment POD#1, s/p bioprosthetic AVR (21mm Magna Ease) Fast track extubation yesterday. Doing extremely well. Normotensive, SR. Minimal tube drainage. UO 30 mls/hr. Creat 1,3. CXR OK. [place] and a-line are out Plan Plan of Care D/c cordis Lasix 40mg iv x1, then daily D/c juan Amio po for AFib prophylaxis ASA and b collins Pulm toilet and ambulation Will keep mediastinal tubes for one more day OK to transfer to stepdown today TERRA CALDERON MD Dec 14, 2017 11:34
[2017-12-14] MEDS: AMIODARONE HCL 200 MG TABLET. PO SCH ×2 (11:41→21:02)
[2017-12-14] MEDS: FUROSEMIDE 40 MG/4 ML VIAL. IVP SCH (11:46)
[2017-12-14] MEDS ORDERED: MAG HYDROX/ALUMINUM HYD/SIMETH 30 ML ORAL.SUSP PO PRN (12:00)
[2017-12-14] MEDS ORDERED: BENZOCAINE/MENTHOL LOZENGE. PO PRN (12:00)
[2017-12-14] MEDS: FERROUS SULFATE 325 MG TABLET. PO SCH (17:59)
[2017-12-14] MEDS: POLYETHYLENE GLYCOL 3350 17 GM PACKET. PO SCH (17:59)
[2017-12-14] MEDS: ATORVASTATIN CALCIUM 40 MG TABLET. PO SCH (21:01)
[2017-12-15] MEDS: oxyCODONE/APAP 5/325 1 TAB TABLET PO PRN ×2 (00:16→20:56)
[2017-12-15 03:06] VITALS: BP 106/59
[2017-12-15 07:00] VITALS: BP 105/68
--- NOTE | 2017-12-15 08:43 | RAD ---
Portable chest, 12/15/2017: HISTORY: Postop evaluation, aortic valve surgery Comparison is made to yesterday's study. [address] remain in place. The heart size is unchanged. There is minimal residual pneumomediastinum. Hazy right basilar opacities have worsened slightly suggesting a combination of pleural fluid and atelectasis. Mild left basilar atelectasis has improved. There is no evidence of pneumothorax. IMPRESSION: 1. Worsening mild right basilar opacity compatible with a small amount of pleural fluid and underlying atelectasis. 2. Improving mild left basilar atelectasis. Electronically signed by: Billy Summers MD (12/15/2017 8:39 AM) [facility]
[2017-12-15 08:50] LABS: HEMATOCRIT 33.7 % (39.0-53.0); HEMOGLOBIN 11.4 g/dL (13.0-17.5); RED BLOOD COUNT 3.67 x10^6/uL (4.30-5.70); RED CELL DISTRIBUTION WIDTH 13.3 % (11.5-14.5)
[2017-12-15] MEDS: METOPROLOL TART IMMED RELEASE 25 MG TABLET. PO SCH ×2 (09:00→20:55)
[2017-12-15 09:09] LABS: CALCIUM 8.3 mg/dL (8.5-10.1); CREATININE 1.9 mg/dL (0.7-1.3); GFR 36.7; MAGNESIUM 2.6 mg/dL (1.8-2.4); POTASSIUM 5.3 mmol/L (3.5-5.1)
[2017-12-15] MEDS: SENNOSIDES/DOCUSATE 8.6/50MG TABLET. PO SCH ×2 (09:18→20:56)
[2017-12-15] MEDS: FERROUS SULFATE 325 MG TABLET. PO SCH ×2 (09:19→17:55)
[2017-12-15] MEDS: ASPIRIN ENTERIC COATED 325 MG TABLET.DR. PO SCH (09:19)
[2017-12-15] MEDS: FAMOTIDINE 20 MG TABLET. PO SCH (09:19)
[2017-12-15] MEDS: FUROSEMIDE 40 MG/4 ML VIAL. IVP SCH (09:20)
[2017-12-15 11:00] VITALS: BP 110/50
[2017-12-15] MEDS ORDERED: ELECTROLYTE (NON-ICU) PROTOCOL MC PRN (12:00)
--- NOTE | 2017-12-15 12:29 | PDOC ---
CARDIO Progress Notes Date and Time Date of Service 12/15/2017 Time of Evaluation 1228 Subjective Subjective: No Chest Pain, No shortness of breath, No Palpitations, No Dizziness, Other (drowsy; incisional pain controlled) Vitals Vitals Vital Signs Date Time Temp Pulse Resp B/P (MAP) Pulse Ox O2 Delivery O2 Flow Rate FiO2 12/15/17 11:00 98.3 77 20 110/50 (70) 94 Nasal Cannula 2.0 98.3 Weight Weight [ ] Input and Output Intake and Output Intake and Output 12/15/17 07:00 Intake Total 1850 ml Output Total 1255 ml Balance 595 ml Intake Oral 1600 ml IV Total 250 ml Output Urine Total 835 ml Chest Tube Drainage Total 420 ml Laboratory Labs Laboratory Tests Test 12/15/17 08:35 White Blood Count 18.0 x10^3/uL (4.0-11.0) Red Blood Count 3.67 x10^6/uL (4.30-5.70) Hemoglobin 11.4 g/dL (13.0-17.5) Hematocrit 33.7 % (39.0-53.0) Mean Corpuscular Volume 92 fL (79-100) Mean Corpuscular Hemoglobin 31 pg (25-35) Mean Corpuscular Hemoglobin Concent 34 g/dL (31-37) Red Cell Distribution Width 13.3 % (11.5-14.5) Platelet Count 92 x10^3/uL (140-400) Sodium Level 134 mmol/L (136-145) Potassium Level 5.3 mmol/L (3.5-5.1) Chloride Level 98 mmol/L (98-107) Carbon Dioxide Level 30 mmol/L (21-32) Anion Gap 6 (6-14) Blood Urea Nitrogen 41 mg/dL (8-26) Creatinine 1.9 mg/dL (0.7-1.3) Estimated GFR (Cockcroft-Gault) 36.7 Glucose Level 131 mg/dL (70-99) Calcium Level 8.3 mg/dL (8.5-10.1) Magnesium Level 2.6 mg/dL (1.8-2.4) Physical Exam HEENT: Neck Supple W Full Motion Chest: Symmetric LUNGS: Other (diminished in bases ; mediastinal tubes in place) Heart: S1S2, RRR, no thrills, murmurs (3/6 systolic; ? rub), other (Tele: SR) Abdomen: Soft N/T Extremities: Other (mild LE edema) Neurology: alert, follow commands Assessment Assessment 1. severe --s/p bioprosthetic AVR --continue ASA; BB on hold due to low normotensive BP --management per CTS 2. chronic diastolic HF --diuretics per CTS 3. HTN --low normotensive 4. HLD --continue statin therapy 5. ULICES --likely related to diuretics; discuss with CTS --? fluid bolus GOVIND LORA APRN Dec 15, 2017 12:29
--- NOTE | 2017-12-15 12:49 | PDOC ---
Progress Note Subjective Subjective Doing OK. Normotensive, SR. Minimal tube drainage. Creat up to 1,9. CXR OK. ROS ROS No nausea No vomiting No pain No rash Vital Sign Vital Signs Vital Signs Date Time Temp Pulse Resp B/P (MAP) Pulse Ox O2 Delivery O2 Flow Rate FiO2 12/15/18 11:00 98.3 77 20 110/50 (70) 94 Nasal Cannula 2.0 98.3 Physical Exam PHYSICAL EXAM GENERAL: NAD, Alert HEENT: PERRL, OC/OP NECK: Supple, no JVD, no LN LUNGS: Clear HEART: S1S2, no gallop, no murmur ABD: Soft, NT, no organomegaly, no rebound EXT: No edema, no cyanosis FRONT DESK ADMINISTRATOR: Alert, oriented x 3, no focal neurologic deficit SKIN: No rash IV: ok Labs Lab Laboratory Tests Test 18 08:35 White Blood Count 18.0 x10^3/uL (4.0-11.0) Red Blood Count 3.67 x10^6/uL (4.30-5.70) Hemoglobin 11.4 g/dL (13.0-17.5) Hematocrit 33.7 % (39.0-53.0) Mean Corpuscular Volume 92 fL (79-100) Mean Corpuscular Hemoglobin 31 pg (25-35) Mean Corpuscular Hemoglobin Concent 34 g/dL (31-37) Red Cell Distribution Width 13.3 % (11.5-14.5) Platelet Count 92 x10^3/uL (140-400) Sodium Level 134 mmol/L (136-145) Potassium Level 5.3 mmol/L (3.5-5.1) Chloride Level 98 mmol/L (98-107) Carbon Dioxide Level 30 mmol/L (21-32) Anion Gap 6 (6-14) Blood Urea Nitrogen 41 mg/dL (8-26) Creatinine 1.9 mg/dL (0.7-1.3) Estimated GFR (Cockcroft-Gault) 36.7 Glucose Level 131 mg/dL (70-99) Calcium Level 8.3 mg/dL (8.5-10.1) Magnesium Level 2.6 mg/dL (1.8-2.4) Objective Assessment POD#2, s/p bioprosthetic AVR (21mm Magna Ease) Doing OK. Normotensive, SR. Minimal tube drainage. Creat up to 1,9. CXR OK. Plan Plan of Care Give 500 mls NS D/c Lasix Bladder scan D/c mediastinal tubes Amio po for AFib prophylaxis ASA and b collins Pulm toilet and ambulation TERRA CALDERON MD Dec 15, 2017 12:49
[2017-12-15] MEDS ORDERED: IV NORMAL SALINE 500ML BAG 500 ML IV ONE (13:00)
[2017-12-15] MEDS: AMIODARONE HCL 200 MG TABLET. PO SCH ×2 (14:17→20:55)
[2017-12-15 15:00] VITALS: BP 107/51
[2017-12-15] MEDS: POLYETHYLENE GLYCOL 3350 17 GM PACKET. PO SCH (17:55)
[2017-12-15 19:00] VITALS: BP 111/62
[2017-12-15] MEDS: ATORVASTATIN CALCIUM 40 MG TABLET. PO SCH (20:55)
[2017-12-15 23:00] VITALS: BP 122/59
[2017-12-16] MEDS: oxyCODONE/APAP 5/325 1 TAB TABLET PO PRN ×4 (00:36→17:31)
[2017-12-16 03:00] VITALS: BP 112/69
[2017-12-16 05:42] LABS: CALCIUM 8.1 mg/dL (8.5-10.1); CREATININE 1.7 mg/dL (0.7-1.3); GFR 41.8
[2017-12-16 05:53] LABS: POTASSIUM 5.3 mmol/L (3.5-5.1)
[2017-12-16 07:00] VITALS: BP 97/62
--- NOTE | 2017-12-16 08:10 | RAD ---
Chest radiograph 12/16/2017 7:51 AM INDICATION: Postoperative heart surgery. COMPARISON: December 15, 2017 TECHNIQUE: Portable upright frontal view of the chest is provided. FINDINGS: The cardiomediastinal silhouette is similar in appearance. Median sternotomy changes are present. Cardiac valvular prosthesis is noted. There is similar appearance of a small right pleural effusion with adjacent compressive atelectasis versus infiltrate. Similar mild interstitial prominence. No pneumothorax. Interval removal of a mediastinal drain. IMPRESSION: No significant interval change involving aeration of the chest. Electronically signed by: Amee Lobo MD (12/16/2017 8:06 AM) [id number]
--- NOTE | 2017-12-16 08:27 | PDOC ---
Progress Note Subjective Subjective Doing well. Normotensive, SR. Creat down to 1,7 from 1,9. CXR OK. ROS ROS No nausea No vomiting No pain No rash Vital Sign Vital Signs Vital Signs Date Time Temp Pulse Resp B/P (MAP) Pulse Ox O2 Delivery O2 Flow Rate FiO2 12/16/17 08:24 Room Air 12/16/17 07:00 97.1 71 16 97/62 (74) 92 4.0 97.1 Physical Exam PHYSICAL EXAM GENERAL: NAD, Alert HEENT: PERRL, OC/OP NECK: Supple, no JVD, no LN LUNGS: Clear HEART: S1S2, no gallop, no murmur ABD: Soft, NT, no organomegaly, no rebound EXT: No edema, no cyanosis SHOP FITTER: Alert, oriented x 3, no focal neurologic deficit SKIN: No rash IV: ok Labs Lab Laboratory Tests Test 12/15/17 08:35 12/16/17 04:30 White Blood Count 18.0 x10^3/uL (4.0-11.0) Red Blood Count 3.67 x10^6/uL (4.30-5.70) Hemoglobin 11.4 g/dL (13.0-17.5) Hematocrit 33.7 % (39.0-53.0) Mean Corpuscular Volume 92 fL (79-100) Mean Corpuscular Hemoglobin 31 pg (25-35) Mean Corpuscular Hemoglobin Concent 34 g/dL (31-37) Red Cell Distribution Width 13.3 % (11.5-14.5) Platelet Count 92 x10^3/uL (140-400) Sodium Level 134 mmol/L (136-145) 132 mmol/L (136-145) Potassium Level 5.3 mmol/L (3.5-5.1) 5.3 mmol/L (3.5-5.1) Chloride Level 98 mmol/L (98-107) 97 mmol/L (98-107) Carbon Dioxide Level 30 mmol/L (21-32) 30 mmol/L (21-32) Anion Gap 6 (6-14) 5 (6-14) Blood Urea Nitrogen 41 mg/dL (8-26) 56 mg/dL (8-26) Creatinine 1.9 mg/dL (0.7-1.3) 1.7 mg/dL (0.7-1.3) Estimated GFR (Cockcroft-Gault) 36.7 41.8 Glucose Level 131 mg/dL (70-99) 115 mg/dL (70-99) Calcium Level 8.3 mg/dL (8.5-10.1) 8.1 mg/dL (8.5-10.1) Magnesium Level 2.6 mg/dL (1.8-2.4) Objective Assessment POD#3, s/p bioprosthetic AVR (21mm Magna Ease) Doing well. Normotensive, SR. Creat down to 1,7 from 1,9. CXR OK. Plan Plan of Care D/c pacing wires Amio po for AFib prophylaxis ASA and b collins Pulm toilet and ambulation Hold lasix-BUN up TERRA CALDERON MD Dec 16, 2017 08:27
[2017-12-16] MEDS: AMIODARONE HCL 200 MG TABLET. PO SCH ×2 (09:43→21:49)
[2017-12-16] MEDS: FERROUS SULFATE 325 MG TABLET. PO SCH ×2 (09:43→17:00)
[2017-12-16] MEDS: METOPROLOL TART IMMED RELEASE 25 MG TABLET. PO SCH ×2 (09:44→21:50)
[2017-12-16] MEDS: ASPIRIN ENTERIC COATED 325 MG TABLET.DR. PO SCH (09:44)
[2017-12-16] MEDS: FAMOTIDINE 20 MG TABLET. PO SCH (09:44)
[2017-12-16] MEDS: SENNOSIDES/DOCUSATE 8.6/50MG TABLET. PO SCH ×2 (09:44→21:49)
--- NOTE | 2017-12-16 10:09 | PATHOLOGY ---
[facility] Accession Number: [id number] . 01 Material submitted: . AORTIC VALVE LEAFLETS . 01 Clinical history: . Severe aortic valve stenosis . 02 Diagnosis: Aortic valve, replacement: - Irregular nodular fibrosis and calcific deposits of valve leaflets consistent with degenerative aortic stenosis. . (JPM:mml; 12/15/17) [facility]12/15/2017 . 02 Electronically signed: . Martin Larsen MD, Pathologist NPI- [id number] . 01 Gross description: . The specimen is received in formalin, labeled "Julio César Jimenez and aortic valve leaflets", are two apparent fibrotic, calcified leaflets and multiple similar irregular fragments measuring 3.2 x 2.0 x 1.0 cm in aggregate. Material Worker sections are submitted in A1 after decalcification. . . ([facility]; 12/13/2017) [facility] . 02 Pathologist provided ICD-10: I35.0 . 02 CPT . 965899, 004108 Performed at: 01 [facility] [address], [place] [id number] MD Pramod Medina MD Phone: [phone] Performed at: 02 [facility] [address] [place], [place] [id number] MD Martin Larsen MD Phone: [phone]
[2017-12-16 11:00] VITALS: BP 122/57
--- NOTE | 2017-12-16 11:08 | PDOC ---
CARDIO Progress Notes Date and Time Date of Service 12/16/2017 Time of Evaluation 1102 Subjective Subjective: No Chest Pain, No shortness of breath, No Palpitations, No Dizziness Vitals Vitals Vital Signs Date Time Temp Pulse Resp B/P (MAP) Pulse Ox O2 Delivery O2 Flow Rate FiO2 12/16/17 09:44 71 97/62 12/16/17 09:43 Nasal Cannula 2.0 12/16/17 07:00 97.1 16 92 97.1 Weight Weight [ ] Input and Output Intake and Output Intake and Output 12/16/17 07:00 Intake Total 1050 ml Output Total 2050 ml Balance -1000 ml Intake Oral 1050 ml Output Urine Total 2050 ml Laboratory Labs Laboratory Tests Test 12/16/17 04:30 Sodium Level 132 mmol/L (136-145) Potassium Level 5.3 mmol/L (3.5-5.1) Chloride Level 97 mmol/L (98-107) Carbon Dioxide Level 30 mmol/L (21-32) Anion Gap 5 (6-14) Blood Urea Nitrogen 56 mg/dL (8-26) Creatinine 1.7 mg/dL (0.7-1.3) Estimated GFR (Cockcroft-Gault) 41.8 Glucose Level 115 mg/dL (70-99) Calcium Level 8.1 mg/dL (8.5-10.1) Physical Exam HEENT: Neck Supple W Full Motion Chest: Symmetric LUNGS: Clear to Auscultation Heart: S1S2, RRR, no thrills, murmurs (3/6 systolic; ? rub), other (Tele: SR) Abdomen: Soft N/T Extremities: No Edema Neurology: alert, oriented, follow commands Assessment Assessment 1. severe --s/p bioprosthetic AVR --continue ASA & BB --management per CTS 2. chronic diastolic HF --compensated --diuretics on hold due to ULICES 3. HTN --low normotensive 4. HLD --continue statin therapy 5. ULICES --Cr trending downward 6. anemia, post-operative, expectant --stable H & H --on iron replacement therapy GOVIND LORA APRN Dec 16, 2017 11:08
[2017-12-16] MEDS ORDERED: SENN-22 PO (14:17)
[2017-12-16] MEDS ORDERED: METO25TA4 PO (14:17)
[2017-12-16] MEDS ORDERED: OXYC1TAB7 PO (14:17)
[2017-12-16] MEDS ORDERED: ASPI325T11 PO (14:17)
[2017-12-16 15:00] VITALS: BP 104/57
[2017-12-16] MEDS: POLYETHYLENE GLYCOL 3350 17 GM PACKET. PO SCH (17:31)
[2017-12-16 19:48] VITALS: BP 118/66
[2017-12-16] MEDS: ATORVASTATIN CALCIUM 40 MG TABLET. PO SCH (21:49)
[2017-12-16 23:47] VITALS: BP 120/72
[2017-12-17 03:20] VITALS: BP 117/75
[2017-12-17 05:47] LABS: CALCIUM 8.1 mg/dL (8.5-10.1); CREATININE 1.1 mg/dL (0.7-1.3); POTASSIUM 4.8 mmol/L (3.5-5.1)
[2017-12-17 06:15] LABS: HEMOGLOBIN 9.9 g/dL (13.0-17.5); RED BLOOD COUNT 3.17 x10^6/uL (4.30-5.70); WHITE BLOOD COUNT 15.3 x10^3/uL (4.0-11.0)
[2017-12-17 07:00] VITALS: BP 137/78
[2017-12-17] MEDS: FAMOTIDINE 20 MG TABLET. PO SCH (08:35)
[2017-12-17] MEDS: ASPIRIN ENTERIC COATED 325 MG TABLET.DR. PO SCH (08:36)
[2017-12-17] MEDS: SENNOSIDES/DOCUSATE 8.6/50MG TABLET. PO SCH ×2 (08:36→20:20)
[2017-12-17] MEDS: AMIODARONE HCL 200 MG TABLET. PO SCH ×2 (08:36→20:19)
[2017-12-17] MEDS: METOPROLOL TART IMMED RELEASE 25 MG TABLET. PO SCH ×2 (08:36→20:19)
[2017-12-17 11:00] VITALS: BP 131/73
--- NOTE | 2017-12-17 13:42 | PDOC ---
Progress Note Subjective Subjective Doing well. Ambulating. Normotensive, SR. Creat down to 1,1 from 1,7, BUN also down to 51. Hb 9,2. Still mld hypoxia, requires 4 lit NC. ROS ROS No nausea No vomiting No pain No rash Vital Sign Vital Signs Vital Signs Date Time Temp Pulse Resp B/P (MAP) Pulse Ox O2 Delivery O2 Flow Rate FiO2 12/17/17 11:00 98.8 78 18 131/73 (92) 96 Nasal Cannula 4.0 98.8 Physical Exam PHYSICAL EXAM GENERAL: NAD, Alert HEENT: PERRL, OC/OP NECK: Supple, no JVD, no LN LUNGS: Clear HEART: S1S2, no gallop, no murmur ABD: Soft, NT, no organomegaly, no rebound EXT: No edema, no cyanosis FLEET MANAGER/DISPATCH: Alert, oriented x 3, no focal neurologic deficit SKIN: No rash IV: ok Labs Lab Laboratory Tests Test 12/17/17 04:00 12/17/17 05:00 White Blood Count 15.3 x10^3/uL (4.0-11.0) Red Blood Count 3.17 x10^6/uL (4.30-5.70) Hemoglobin 9.9 g/dL (13.0-17.5) Hematocrit 29.0 % (39.0-53.0) Mean Corpuscular Volume 92 fL (79-100) Mean Corpuscular Hemoglobin 31 pg (25-35) Mean Corpuscular Hemoglobin Concent 34 g/dL (31-37) Red Cell Distribution Width 13.0 % (11.5-14.5) Platelet Count 106 x10^3/uL (140-400) Sodium Level 131 mmol/L (136-145) Potassium Level 4.8 mmol/L (3.5-5.1) Chloride Level 98 mmol/L (98-107) Carbon Dioxide Level 29 mmol/L (21-32) Anion Gap 4 (6-14) Blood Urea Nitrogen 52 mg/dL (8-26) Creatinine 1.1 mg/dL (0.7-1.3) Estimated GFR (Cockcroft-Gault) 69.0 Glucose Level 99 mg/dL (70-99) Calcium Level 8.1 mg/dL (8.5-10.1) Objective Assessment POD#4, s/p bioprosthetic AVR (21mm Magna Ease) Doing well. Ambulating. Normotensive, SR. Creat down to 1,1 from 1,7, BUN also down to 51. Hb 9,2. Still mld hypoxia, requires 4 lit NC. Plan Plan of Care Re-start lasix 20mg iv daily Amio po for AFib prophylaxis ASA and b collins Pulm toilet and ambulation CXR tomorrow morning TERRA CALDERON MD Dec 17, 2017 13:42
[2017-12-17] MEDS: FUROSEMIDE 20 MG/2 ML VIAL. IVP SCH (14:10)
[2017-12-17 15:00] VITALS: BP 110/67
[2017-12-17] MEDS: POLYETHYLENE GLYCOL 3350 17 GM PACKET. PO SCH (16:15)
[2017-12-17 19:50] VITALS: BP 117/72
[2017-12-17] MEDS: ATORVASTATIN CALCIUM 40 MG TABLET. PO SCH (20:19)
[2017-12-17] MEDS: diphenhydrAMINE HCL 25 MG CAPSULE PO PRN (23:39)
[2017-12-17] MEDS: ACETAMINOPHEN 325 MG TABLET. PO PRN (23:39)
[2017-12-17 23:58] VITALS: BP 126/73
[2017-12-18 03:10] VITALS: BP 121/72
[2017-12-18 07:00] VITALS: BP 137/70
[2017-12-18] MEDS: ASPIRIN ENTERIC COATED 325 MG TABLET.DR. PO SCH (08:24)
[2017-12-18] MEDS: FUROSEMIDE 20 MG/2 ML VIAL. IVP SCH (08:25)
[2017-12-18] MEDS: AMIODARONE HCL 200 MG TABLET. PO SCH ×2 (08:25→21:45)
[2017-12-18] MEDS: FAMOTIDINE 20 MG TABLET. PO SCH (08:25)
[2017-12-18] MEDS: METOPROLOL TART IMMED RELEASE 25 MG TABLET. PO SCH ×2 (08:25→21:45)
[2017-12-18] MEDS: SENNOSIDES/DOCUSATE 8.6/50MG TABLET. PO SCH ×2 (08:48→21:00)
--- NOTE | 2017-12-18 08:59 | RAD ---
Portable chest, 12/18/2017: HISTORY: Postop CABG Comparison is made to a study from 12/16/2017. The heart size and pulmonary vascularity are normal. There is minimal left basilar atelectasis. There is a small amount of pleural fluid and underlying atelectasis in the right base which appears to have improved slightly. There is no evidence of pneumothorax. No new abnormality is seen. IMPRESSION: Slightly improved small right pleural effusion with underlying atelectasis. Electronically signed by: Billy Summers MD (12/18/2017 8:55 AM) [facility]
[2017-12-18 11:00] VITALS: BP 128/70
--- NOTE | 2017-12-18 14:34 | PDOC ---
PROGRESS NOTES Subjective Subjective Patient seen and examined The patient looks and feels better today. Objective Objective Vital Signs Date Time Temp Pulse Resp B/P (MAP) Pulse Ox O2 Delivery O2 Flow Rate FiO2 12/18/17 11:00 97.9 89 18 128/70 (89) 97 Nasal Cannula 4.0 97.9 Intake and Output 12/18/17 07:00 Intake Total 760 ml Balance 760 ml Intake Oral 760 ml # Voids 3 Physical Exam Abdomen: Normal bowel sounds Heart: Regular rate General: No acute distress Lungs: Clear to auscultation Assessment Assessment Status post bioprosthetic AVR for severe aortic stenosis. Continues to improve postoperatively. We'll increase activities. Diastolic heart failure. Compensated. Hypertension. Continue present treatments. Hyperlipidemia on statins. Mild hypoxia. Will increase activities and monitor. Comment Review of Relevant I have reviewed the following items katherine (where applicable) has been applied. Labs Laboratory Tests Test 12/17/17 04:00 12/17/17 05:00 White Blood Count 15.3 x10^3/uL (4.0-11.0) Red Blood Count 3.17 x10^6/uL (4.30-5.70) Hemoglobin 9.9 g/dL (13.0-17.5) Hematocrit 29.0 % (39.0-53.0) Mean Corpuscular Volume 92 fL (79-100) Mean Corpuscular Hemoglobin 31 pg (25-35) Mean Corpuscular Hemoglobin Concent 34 g/dL (31-37) Red Cell Distribution Width 13.0 % (11.5-14.5) Platelet Count 106 x10^3/uL (140-400) Sodium Level 131 mmol/L (136-145) Potassium Level 4.8 mmol/L (3.5-5.1) Chloride Level 98 mmol/L (98-107) Carbon Dioxide Level 29 mmol/L (21-32) Anion Gap 4 (6-14) Blood Urea Nitrogen 52 mg/dL (8-26) Creatinine 1.1 mg/dL (0.7-1.3) Estimated GFR (Cockcroft-Gault) 69.0 Glucose Level 99 mg/dL (70-99) Calcium Level 8.1 mg/dL (8.5-10.1) Medications Current Medications Tranexamic Acid 1000 mg/Sodium Chloride 60 ml @ 60 mls/hr 1X PERIOP ONCE INJ ; Start 12/13/17 at 06:00; Stop 12/13/17 at 06:59; Status Cancel Cefazolin Sodium 1 gm/Sodium Chloride 500 ml @ 500 mls/hr 1X ONCE IRR Last administered on 12/13/17at 09:10; Start 12/13/17 at 06:00; Stop 12/13/17 at 06:59; Status DC Ondansetron HCl (Zofran) 4 mg PRN Q6HRS PRN IV NAUSEA/VOMITING; Start 12/13/17 at 07:00; Stop 12/14/17 at 06:59; Status DC Fentanyl Citrate (Fentanyl 2ml Vial) 25 mcg PRN Q5MIN PRN IV MILD PAIN; Start 12/13/17 at 07:00; Stop 12/14/17 at 06:59; Status DC Fentanyl Citrate (Fentanyl 2ml Vial) 50 mcg PRN Q5MIN PRN IV MODERATE TO SEVERE PAIN; Start 12/13/17 at 07:00; Stop 12/14/17 at 06:59; Status DC Morphine Sulfate (Morphine Sulfate) 1 mg PRN Q10MIN PRN IV SEVERE PAIN; Start 12/13/17 at 07:00; Stop 12/14/17 at 06:59; Status DC Ringer's Solution 1,000 ml @ 30 mls/hr Q24H IV Last administered on 12/13/17at 06:41; Start 12/13/17 at 07:00; Stop 12/13/17 at 18:59; Status DC Lidocaine HCl (Xylocaine-Mpf 1% Vial) 2 ml PRN 1X PRN ID PRIOR TO IV START Last administered on 12/13/17at 06:41; Start 12/13/17 at 07:00; Stop 12/14/17 at 06: 59; Status DC Prochlorperazine Edisylate (Compazine) 5 mg PACU PRN PRN IV NAUSEA, MRX1; Start 12/13/17 at 07:00; Stop 12/14/17 at 06:59; Status DC Cefazolin Sodium/ Dextrose 50 ml @ 100 mls/hr 1X PREOP PRN IV PRIOR TO PROCEDURE Last administered on 12/13/17at 12:26; Start 12/13/17 at 06:00; Stop 12/13 at 18:00; Status DC Etomidate (Amidate) 20 mg STK-MED ONCE IV ; Start 12/13/17 at 06:41; Stop at 06:42; Status DC Aminocaproic Acid (Amicar) 5,000 mg STK-MED ONCE IV ; Start 12/13/17 at 06:41; Stop 12/13/17 at 06:42; Status DC Sufentanil Citrate (Sufenta) 100 mcg STK-MED ONCE .ROUTE ; Start 12/13/17 at 06: 41; Stop 12/13/17 at 06:42; Status DC Midazolam HCl (Versed) 2 mg STK-MED ONCE .ROUTE ; Start 12/13/17 at 06:41; Stop 12/13/17 at 06:43; Status DC Rocuronium [place] (Zemuron) 100 mg STK-MED ONCE .ROUTE ; Start 12/13/17 at 06:42 ; Stop 12/13/17 at 06:43; Status DC Phenylephrine HCl (Benji-Synephrine Inj) 10 mg STK-MED ONCE .ROUTE ; Start at 06:43; Stop 12/13/17 at 06:44; Status DC Heparin Sodium (Porcine) 30,000 unit STK-MED ONCE .ROUTE ; Start 12/13/17 at 06: 46; Stop 12/13/17 at 06:47; Status DC Vancomycin HCl (VANCO for OR ONLY) 10 gm STK-MED ONCE .ROUTE Last administered on 12/13/17at 09:10; Start 12/13/17 at 06:36; Stop 12/13/17 at 07:37; Status DC Cellulose (Surgicel Hemostat 4x8) 1 each STK-MED ONCE .ROUTE Last administered on 12/13/17at 09:10; Start 12/13/17 at 06:36; Stop 12/13/17 at 07:37; Status DC Potassium Chloride 70 meq/ Sodium Bicarbonate 12.5 meq/Lidocaine HCl 24 ml/ Parenteral Electrolytes 571.5 ml @ 571.5 mls/ hr 1X ONCE IRR Last administered on 12/13/17at 10:02; Start 12/13/17 at 08:00; Stop 12/13/17 at 08:59; Status DC Potassium Chloride 15 meq/ Sodium Bicarbonate 12.5 meq/Parenteral Electrolytes 520 ml @ 520 mls/hr 1X ONCE IRR Last administered on 12/13/17at 10:02; Start at 08:00; Stop 12/13/17 at 08:59; Status DC Ephedrine Sulfate (ePHEDrine PF IN SALINE SYRINGE) 50 mg STK-MED ONCE IV ; Start 12/13/17 at 08:15; Stop 12/13/17 at 08:16; Status DC Dexamethasone Sodium Phosphate (Decadron) 20 mg STK-MED ONCE .ROUTE ; Start 12/13 at 09:06; Stop 12/13/17 at 09:07; Status DC Isoflurane (Isoflurane) 60 ml STK-MED ONCE IH ; Start 12/13/17 at 09:06; Stop 12/13/17 at 09:07; Status DC Propofol 50 ml @ As Directed STK-MED ONCE IV ; Start 12/13/17 at 09:08; Stop 12/13 at 09:09; Status DC Cefazolin Sodium (Ancef) 1 gm STK-MED ONCE .ROUTE ; Start 12/13/17 at 09:28; Stop 12/13/17 at 09:29; Status DC Cefazolin Sodium (Ancef) 1 gm STK-MED ONCE .ROUTE ; Start 12/13/17 at 09:28; Stop 12/13/17 at 09:29; Status DC Rocuronium Damascus (Zemuron) 100 mg STK-MED ONCE .ROUTE ; Start 12/13/17 at 09:53 ; Stop 12/13/17 at 09:54; Status DC Protamine Sulfate (Protamine) 250 mg STK-MED ONCE IV ; Start 12/13/17 at 10:09; Stop 12/13/17 at 10:10; Status DC Protamine Sulfate (Protamine) 250 mg STK-MED ONCE IV ; Start 12/13/17 at 10:09; Stop 12/13/17 at 10:10; Status DC Propofol 50 ml @ As Directed STK-MED ONCE IV ; Start 12/13/17 at 11:23; Stop 12/13 at 11:24; Status DC Lidocaine HCl (Lidocaine Pf 2% Vial) 5 ml STK-MED ONCE .ROUTE ; Start 12/13/17 at 11:42; Stop 12/13/17 at 11:43; Status DC Calcium Chloride (Calcium Chloride) 1,000 mg STK-MED ONCE .ROUTE ; Start at 11:57; Stop 12/13/17 at 11:58; Status DC Fentanyl Citrate (Fentanyl 2ml Vial) 100 mcg STK-MED ONCE .ROUTE ; Start at 12:00; Stop 12/13/17 at 12:01; Status DC Lidocaine HCl (Lidocaine Pf 2% Vial) 5 ml STK-MED ONCE .ROUTE ; Start 12/13/17 at 12:07; Stop 12/13/17 at 12:08; Status DC Magnesium Sulfate 5 gm STK-MED ONCE .ROUTE ; Start 12/13/17 at 12:07; Stop at 12:08; Status DC Heparin Sodium (Porcine) 30,000 unit STK-MED ONCE .ROUTE ; Start 12/13/17 at 12: 07; Stop 12/13/17 at 12:09; Status DC Mannitol (Mannitol) 12.5 g STK-MED ONCE .ROUTE ; Start 12/13/17 at 12:07; Stop at 12:09; Status DC Albumin Human 100 ml @ As Directed STK-MED ONCE IV ; Start 12/13/17 at 12:07; Stop 12/13/17 at 12:09; Status DC Calcium Chloride (Calcium Chloride) 1,000 mg STK-MED ONCE .ROUTE ; Start at 12:07; Stop 12/13/17 at 12:09; Status DC Magnesium Sulfate 5 gm STK-MED ONCE .ROUTE ; Start 12/13/17 at 12:13; Stop at 12:14; Status DC Heparin Sodium (Porcine) 30,000 unit STK-MED ONCE .ROUTE ; Start 12/13/17 at 12: 13; Stop 12/13/17 at 12:15; Status DC Atorvastatin Calcium (Lipitor) 40 mg QHS PO Last administered on 12/17/17at 20: 19; Start 12/13/17 at 21:00 Sodium Chloride (Normal Saline Flush) 3 ml PRN Q12HR PRN IV AFTER MEDS AND BLOOD DRAWS; Start 12/13/17 at 12:45 Ringer's Solution 1,000 ml @ 30 mls/hr Q24H IV Last administered on 12/13/17at 14:14; Start 12/13/17 at 12:42; Stop 12/14/17 at 11:53; Status DC Albumin Human 250 ml @ 60 mls/hr PRN Q4HRS PRN IV SEE I/O RECORD Last administered on 12/13/17at 18:29; Start 12/13/17 at 12:45; Stop 12/14/17 at 10:03; Status DC Insulin Human Regular 150 unit/ Sodium Chloride 151.5 ml @ 0 mls/hr CONT PRN PRN IV SEE I/O RECORD; Start 12/13/17 at 12:45; Stop 12/14/17 at 10:03; Status DC Dextrose (Dextrose 50%-Water Syringe) 25 gm PRN Q15MIN PRN IV LOW BLOOD SUGAR; Start 12/13/17 at 12:45; Stop 12/14/17 at 10:04; Status DC Info (Icu Electrolyte Protocol) 1 ea CONT PRN PRN MC SEE COMMENTS; Start at 12:45; Stop 12/14/17 at 11:53; Status DC Magnesium Sulfate/ Dextrose 100 ml @ 100 mls/hr PRN DAILY PRN IV FOR MAG < 2.2 ; Start 12/13/17 at 12:45 Famotidine (Pepcid Vial) 20 mg BID IVP Last administered on 12/14/17at 07:36; Start 12/13/17 at 21:00; Stop 12/14/17 at 10:04; Status DC Ondansetron HCl (Zofran) 4 mg PRN Q4HRS PRN IV NAUSEA/VOMITING, 1ST CHOICE Last administered on 12/13/17at 20:10; Start 12/13/17 at 12:45 Prochlorperazine Edisylate (Compazine) 10 mg PRN Q6HRS PRN IV NAUSEA/VOMITING, 2ND CHOICE; Start 12/13/17 at 12:45 Morphine Sulfate (Morphine Sulfate) 2 mg PRN Q1HR PRN IV PAIN Last administered on 12/14/17at 10:13; Start 12/13/17 at 12:45 Acetaminophen (Tylenol) 650 mg PRN Q4HRS PRN PO FEVER Last administered on 12/17at 23:39; Start 12/13/17 at 12:45 Acetaminophen (Tylenol Supp) 650 mg PRN Q4HRS PRN IN MILD PAIN / TEMP; Start at 12:45; Stop 12/14/17 at 11:53; Status DC Meperidine HCl (Demerol) 12.5 mg PRN Q15MIN PRN IV SHIVERING Last administered on 12/13/17at 14:52; Start 12/13/17 at 12:45; Stop 12/13/17 at 14:52; Status DC Propofol 100 ml @ 0 mls/hr CONT PRN PRN IV POSTOP SEDATION UNTIL EXTUBATE; Start 12/13/17 at 12:45; Stop 12/14/17 at 10:04; Status DC Senna/Docusate Sodium (Senna Plus) 1 tab BID PO Last administered on 12/17/17at 08:36; Start 12/13/17 at 21:00 Bisacodyl (Dulcolax Supp) 10 mg PRN DAILY PRN IN NO BOWEL MOVEMENT; Start at 12:45 Chlorhexidine Gluconate (Peridex) 15 ml BID MM ; Start 12/13/17 at 21:00; Stop at 21:00; Status DC Albuterol Sulfate (Ventolin Neb Soln) 2.5 mg PRN Q4HRS PRN NEB SHORTNESS OF BREATH; Start 12/13/17 at 12:45 Metoprolol Tartrate (Lopressor) 25 mg BID PO Last administered on 12/18/17at 08: 25; Start 12/14/17 at 09:00 Nicardipine HCl 50 mg/Sodium Chloride 270 ml @ 0 mls/hr CONT PRN PRN IV PER PROTOCOL; Start 12/13/17 at 12:45; Stop 12/14/17 at 10:03; Status DC Oxycodone/ Acetaminophen (Percocet 5/325) 1 tab PRN Q4HRS PRN PO MILD PAIN Last administered on 12/16/17at 17:31; Start 12/13/17 at 12:45 Oxycodone/ Acetaminophen (Percocet 5/325) 2 tab PRN Q4HRS PRN PO MODERATE PAIN , SEVERE PAIN Last administered on 12/16/17at 04:19; Start 12/13/17 at 12:45 Cefazolin Sodium/ Dextrose 50 ml @ 100 mls/hr Q8H IV Last administered on at 03:12; Start 12/13/17 at 20:00; Stop 12/15/17 at 04:29; Status DC Lidocaine HCl (Lidocaine Pf 2% Vial) 5 ml STK-MED ONCE .ROUTE ; Start 12/13/17 at 12:58; Stop 12/13/17 at 12:59; Status DC Lidocaine HCl (Lidocaine Pf 2% Vial) 5 ml STK-MED ONCE .ROUTE ; Start 12/13/17 at 12:58; Stop 12/13/17 at 12:59; Status DC Aspirin (Ecotrin) 325 mg DAILYWBKFT PO Last administered on 12/18/17at 08:24; Start 12/14/17 at 08:00 Amiodarone HCl 150 mg/Dextrose 103 ml @ 618 mls/hr 1X ONCE IV Last administered on 12/13/17at 14:12; Start 12/13/17 at 13:30; Stop 12/13/17 at 13:39; Status DC Amiodarone HCl 900 mg/Dextrose 518 ml @ 0 mls/hr CONT PRN IV SEE I/O RECORD Last administered on 12/13/17at 14:13; Start 12/13/17 at 13:30; Stop 12/13/17 at 14: 14; Status DC Sodium Bicarbonate (Sodium Bicarb Adult 8.4% Syr) 100 meq 1X ONCE IV Last administered on 12/13/17at 14:22; Start 12/13/17 at 14:30; Stop 12/13/17 at 14:31; Status DC Sodium Bicarbonate (Sodium Bicarb Adult 8.4% Syr) 50 meq 1X ONCE IV Last administered on 12/13/17at 17:23; Start 12/13/17 at 17:30; Stop 12/13/17 at 17:31; Status DC Magnesium Sulfate/ Dextrose 100 ml @ 100 mls/hr 1X ONCE IV Last administered on 12/14/17at 07:31; Start 12/14/17 at 07:00; Stop 12/14/17 at 07:59; Status DC Famotidine (Pepcid) 20 mg BID PO Last administered on 12/15/17at 09:19; Start 12/14/17 at 11:00; Stop 12/15/17 at 11:52; Status DC Diphenhydramine HCl (Benadryl) 25 mg PRN Q6HRS PRN PO ITCHING Last administered on 12/17/17at 23:39; Start 12/14/17 at 10:15 Amiodarone HCl (Cordarone) 400 mg BID PO Last administered on 12/18/17at 08:25; Start 12/14/17 at 11:00 Polyethylene Glycol (miraLAX PACKET) 17 gm DAILYWSUP PO Last administered on 02/23at 17:31; Start 12/14/17 at 17:00 Furosemide (Lasix) 40 mg DAILY IVP Last administered on 12/15/17at 09:20; Start 12/14/17 at 11:45; Stop 12/15/17 at 12:23; Status DC Info (Non-Icu Electrolyte Protocol) 1 ea DAILY PRN MC PER PROTOCOL; Start at 12:00 Ferrous Sulfate (Feosol) 325 mg BIDWMEALS PO Last administered on 12/16/17at 09: 43; Start 12/14/17 at 17:00; Stop 12/16/17 at 17:15; Status DC Throat Lozenges (Cepacol Sore Throat Lozenge) 1 [place]ton PRN Q2HRS PRN PO SORE THROAT; Start 12/14/17 at 12:00 Al Hydroxide/Mg Hydroxide (Mylanta Plus Xs) 30 ml PRN Q4HRS PRN PO HEARTBURN / GAS; Start 12/14/17 at 12:00 Famotidine (Pepcid) 20 mg DAILY PO Last administered on 12/18/17at 08:25; Start 12/16/17 at 09:00 Sodium Chloride 500 ml @ 500 mls/hr 1X ONCE IV Last administered on 12/15/17at 14:18; Start 12/15/17 at 13:00; Stop 12/15/17 at 13:59; Status DC Furosemide (Lasix) 20 mg DAILY IVP Last administered on 12/18/17at 08:25; Start 12/17/17 at 14:00 Active Scripts Active Senna-Time S Tablet (Sennosides/Docusate Sodium) 1 Each Tablet 1 Tab PO BID SIG: one p.o. BID while taking narcotic pain meds; hold if loose stools or diarrhea Oxycodone-Acetaminophen 5-325 (Oxycodone Hcl/Acetaminophen) 1 Each Tablet 1-2 Tab PO PRN Q4-6HRS PRN Aspirin Ec (Aspirin) 325 Mg Tablet.dr 325 Mg PO DAILYWBKFT Metoprolol Tartrate 25 Mg Tablet 25 Mg PO BID Metoprolol Tartrate 25 Mg Tablet 12.5 Mg PO BID Atorvastatin Calcium 40 Mg Tablet 40 Mg PO QHS Vitals/I & O Vital Sign - Last 24 Hours 12/17/17 12/17/17 12/17/17 12/17/17 15:00 19:50 20:00 20:19 Temp 98.8 98.6 98.8 98.6 Pulse 80 84 80 Resp 18 22 B/P (MAP) 110/67 (81) 117/72 (87) 110/67 Pulse Ox 96 96 O2 Delivery Nasal Cannula Nasal Cannula Nasal Cannula O2 Flow Rate 4.0 2.5 3.0 12/17/17 12/17/17 12/18/17 12/18/17 20:19 23:58 03:10 07:00 Temp 99.0 98.7 98.6 99.0 98.7 98.6 Pulse 80 81 80 83 Resp 18 20 18 B/P (MAP) 110/67 126/73 (90) 121/72 (88) 137/70 (92) Pulse Ox 95 96 97 O2 Delivery Nasal Cannula Nasal Cannula Nasal Cannula O2 Flow Rate 2.5 2.5 4.0 12/18/17 12/18/17 12/18/17 12/18/17 07:35 08:25 08:25 11:00 Temp 97.9 97.9 Pulse 85 80 89 Resp 18 B/P (MAP) 128/70 (89) Pulse Ox 97 O2 Delivery Nasal Cannula Nasal Cannula O2 Flow Rate 2.0 4.0 Intake and Output 12/17/17 12/17/17 12/18/17 15:00 23:00 07:00 Intake Total 660 ml 100 ml Balance 660 ml 100 ml RADHA WATSON MD Dec 18, 2017 14:33
[2017-12-18 15:00] VITALS: BP 131/75
[2017-12-18] MEDS: POLYETHYLENE GLYCOL 3350 17 GM PACKET. PO SCH (15:51)
[2017-12-18 19:45] VITALS: BP 134/79
[2017-12-18] MEDS: ACETAMINOPHEN 325 MG TABLET. PO PRN (21:45)
[2017-12-18] MEDS: ATORVASTATIN CALCIUM 40 MG TABLET. PO SCH (21:45)
[2017-12-18] MEDS: diphenhydrAMINE HCL 25 MG CAPSULE PO PRN (21:46)
[2017-12-18 23:30] VITALS: BP 125/76
[2017-12-19] MEDS: oxyCODONE/APAP 5/325 1 TAB TABLET PO PRN ×2 (02:34→08:46)
[2017-12-19 03:15] VITALS: BP 133/79
[2017-12-19 05:09] LABS: BASO # 0.1 x10^3/uL (0.0-0.2); BASO % 0 % (0-3); EOS # 0.6 x10^3/uL (0.0-0.7); EOS % 5 % (0-3); HEMATOCRIT 31.5 % (39.0-53.0); HEMOGLOBIN 10.9 g/dL (13.0-17.5); LYMPH # 1.8 x10^3/uL (1.0-4.8); LYMPH % 13 % (24-48); MEAN CORPUSCULAR HEMOGLOBIN 31 pg (25-35); MEAN CORPUSCULAR HGB CONC 35 g/dL (31-37); MEAN CORPUSCULAR VOLUME 91 fL (79-100); MONO # 0.7 x10^3/uL (0.0-1.1); MONO % 5 % (0-9); NEUT # 10.2 x10^3uL (1.8-7.7); NEUT % 76 % (31-73); PLATELET COUNT 162 x10^3/uL (140-400); RED BLOOD COUNT 3.46 x10^6/uL (4.30-5.70); RED CELL DISTRIBUTION WIDTH 13.3 % (11.5-14.5); WHITE BLOOD COUNT 13.4 x10^3/uL (4.0-11.0)
[2017-12-19 05:47] LABS: CALCIUM 8.2 mg/dL (8.5-10.1); CREATININE 0.9 mg/dL (0.7-1.3); POTASSIUM 3.9 mmol/L (3.5-5.1)
[2017-12-19 07:00] VITALS: BP 129/78
[2017-12-19] MEDS: AMIODARONE HCL 200 MG TABLET. PO SCH (08:42)
[2017-12-19] MEDS: SENNOSIDES/DOCUSATE 8.6/50MG TABLET. PO SCH (08:42)
[2017-12-19] MEDS: ASPIRIN ENTERIC COATED 325 MG TABLET.DR. PO SCH (08:42)
[2017-12-19] MEDS: FUROSEMIDE 20 MG/2 ML VIAL. IVP SCH (08:42)
[2017-12-19] MEDS: METOPROLOL TART IMMED RELEASE 25 MG TABLET. PO SCH (08:42)
[2017-12-19] MEDS: FAMOTIDINE 20 MG TABLET. PO SCH (08:42)
[2017-12-19 11:00] VITALS: BP 105/62
[2017-12-19] MEDS ORDERED: FURO20TA3 PO (12:34)
--- NOTE | 2017-12-19 12:58 | PDOC3 ---
*Discharge Summary* Date of Admission: Dec 13, 2017 Date of Discharge: Dec 19, 2017 Admitting Diagnosis 1. severe aortic stenosis 2. chronic diastolic HF 3. NSTEMI .> 30 days ago 4. hypertension 5. hyperlipidemia Final Diagnosis 1. severe aortic stenosis; s/p bioprosthetic AVR 2. chronic diastolic HF 3. NSTEMI .> 30 days ago 4. hypertension 5. hyperlipidemia 6. ULICES 7. anemia, post-operative, expectant CONSULTS 1. Cardiology - Dr. Marlys Mata Procedures 12/13/2017: Aortic valve replacement (bioprosthesis, 21mm Magna Ease) by Dr. Grzegorz Castillo DAGOBERTO by Dr. Marlys Mata Brief Hospital Course Mr. Jimenez is a 57 old male who present with syncope and NSTEMI 11/2017 and was found to have severe aortic stenosis. He was deemed to be a surgical candidate by CTS and scheduled to undergo bioprosthetic AVR on 12/13/2017. See operative report for details. Fast track extubation and transferred to CVC on POD #1. Developed ULICES on 12/15/2017 which responded to IV fluid bolus. Hgb stable about 11. No dysrhythmias post-operatively. IV diuretics resumed over weekend. Disposition/Orders: D/C to Home CONDITION AT DISCHARGE: Stable Diet: 2 gr sodium, Cardiac Home Meds Active Scripts Furosemide (FUROSEMIDE) 20 Mg Tablet, 1 TAB PO DAILY for 10 Days, #10 TAB 0 Refills Prov:GOVIND LORA APRN 12/19/17 Sennosides/Docusate Sodium (SENNA-TIME S TABLET) 1 Each Tablet, 1 TAB PO BID, # 30 TAB SIG: one p.o. BID while taking narcotic pain meds; hold if loose stools or diarrhea Prov:GOVIND LORA APRN 12/16/17 Oxycodone Hcl/Acetaminophen (OXYCODONE-ACETAMINOPHEN 5-325) 1 Each Tablet, 1-2 TAB PO PRN Q4-6HRS PRN for MODERATE PAIN, SEVERE PAIN, #30 TAB 0 Refills Prov:GOVIND LORA APRN 12/16/17 Aspirin (ASPIRIN EC) 325 Mg Tablet., 325 MG PO DAILYWBKFT, #120 TAB.SR 3 Refills Prov:GOVIND LORA APRN 12/16/17 Metoprolol Tartrate (METOPROLOL TARTRATE) 25 Mg Tablet, 25 MG PO BID, #60 TAB 3 Refills Prov:GOVIND LORA 12/16/17 Metoprolol Tartrate (METOPROLOL TARTRATE) 25 Mg Tablet, 12.5 MG PO BID, #90 TAB Prov:GOVIND LORA 11/22/17 Atorvastatin Calcium (ATORVASTATIN CALCIUM) 40 Mg Tablet, 40 MG PO QHS, #90 TAB 3 Refills Prov:GOVIND LORA 11/22/17 Scheduled Aspirin (Aspirin Ec), 325 MG PO DAILYWBKFT Atorvastatin Calcium (Atorvastatin Calcium), 40 MG PO QHS Furosemide (Furosemide), 1 TAB PO DAILY Metoprolol Tartrate (Metoprolol Tartrate), 12.5 MG PO BID Metoprolol Tartrate (Metoprolol Tartrate), 25 MG PO BID Sennosides/Docusate Sodium (Senna-Time S Tablet), 1 TAB PO BID Scheduled PRN Oxycodone Hcl/Acetaminophen (Oxycodone-Acetaminophen 5-325), 1-2 TAB PO PRN Q4- 6HRS PRN for MODERATE PAIN, SEVERE PAIN Scripts Furosemide (FUROSEMIDE) 20 Mg Tablet 1 TAB PO DAILY for 10 Days, #10 TAB 0 Refills Prov: GOVIND LORA 12/19/17 Sennosides/Docusate Sodium (SENNA-TIME S TABLET) 1 Each Tablet 1 TAB PO BID, #30 TAB SIG: one p.o. BID while taking narcotic pain meds; hold if loose stools or diarrhea Prov: GOVIND LORA 12/16/17 Oxycodone Hcl/Acetaminophen (OXYCODONE-ACETAMINOPHEN 5-325) 1 Each Tablet 1-2 TAB PO PRN Q4-6HRS PRN for MODERATE PAIN, SEVERE PAIN, #30 TAB 0 Refills Prov: GOVIND LORA 12/16/17 Aspirin (ASPIRIN EC) 325 Mg Tablet.dr 325 MG PO DAILYWBKFT, #120 TAB.SR 3 Refills Prov: GOVIND LORA 12/16/17 Metoprolol Tartrate (METOPROLOL TARTRATE) 25 Mg Tablet 25 MG PO BID, #60 TAB 3 Refills Prov: GENO,GOVIND Horan SERVER 12/16/17 FOLLOW UP APPOINTMENT: [address] Castillo [address] Mata Both appts are scheduled above PCP 7-10 days with PCP Time Spent Total time spent with patient [] minutes for coordination of care, counseling, and education. DISCHARGE INFORMATION: Discharge Date: Dec 19, 2017 Final Diagnosis: 1. severe aortic stenosis; s/p bioprosthetic AVR 2. chronic diastolic HF 3. NSTEMI .> 30 days ago 4. hypertension 5. hyperlipidemia 6. ULICES 7. anemia, post-operative, expectant Condition on Discharge: Stable HOME HEALTH: Face to Face: I certify this patient is under my care and that I, or a nurse practitioner or physician's high school assistant principal working with me, had a face to face encounter that meets the physician face to face encounter requirements with this patient on []. Medical Condition(s): CABG Assisted For: Assess Cardiopulm Status Patient meets Homebound Statu: Limited distance walking POST DISCHARGE ORDERS: Activity Instructions for Disc: Other, see below (walk 5 - 10 min 4x/day and gradually increase) Weight Bearing Status after Di: Full weight bearing, As tolerated DIET AFTER DISCHARGE: Cardiac Wound/Incision Care: No wound care needed (daily shower with usual soap and water for wound care; pat dry; no ointments/creams/lotions to incisions) CHECKS AFTER DISCHARGE: Checks after discharge: Weigh Yourself Daily TREATMENT/EQUIPMENT ORDERS Adaptive Equipment Issued: None CERTIFICATION STATEMENT: Certification Statement: Certification Statement: Based on the above finding, I certify that this patient is confined to the home and needs intermittent care home care, physical therapy and/or speech therapy, or continues to need occupational therapy.~ This patient is under my care, and I have initiated the establishment of the plan of care.~ This patient will be followed by myself or a community physician who will periodically review the plan of care. GOVIND LORA SERVER Dec 19, 2017 12:58
--- NOTE | 2017-12-19 13:09 | PDOC ---
Progress Note Subjective Subjective No issues. Normotensive, SR. Did well with 6 min walk. Ambulating, on room air. Creat & BUN normal. ROS ROS No nausea No vomiting No pain No rash Vital Sign Vital Signs Vital Signs Date Time Temp Pulse Resp B/P (MAP) Pulse Ox O2 Delivery O2 Flow Rate FiO2 12/19/17 11:00 98.5 81 18 105/62 (76) 92 Room Air 98.5 12/19/17 08:00 2.0 Physical Exam PHYSICAL EXAM GENERAL: NAD, Alert HEENT: PERRL, OC/OP NECK: Supple, no JVD, no LN LUNGS: Clear HEART: S1S2, no gallop, no murmur ABD: Soft, NT, no organomegaly, no rebound EXT: No edema, no cyanosis MASTER SHEET CLERK: Alert, oriented x 3, no focal neurologic deficit SKIN: No rash IV: ok Labs Lab Laboratory Tests Test 12/19/17 04:45 White Blood Count 13.4 x10^3/uL (4.0-11.0) Red Blood Count 3.46 x10^6/uL (4.30-5.70) Hemoglobin 10.9 g/dL (13.0-17.5) Hematocrit 31.5 % (39.0-53.0) Mean Corpuscular Volume 91 fL (79-100) Mean Corpuscular Hemoglobin 31 pg (25-35) Mean Corpuscular Hemoglobin Concent 35 g/dL (31-37) Red Cell Distribution Width 13.3 % (11.5-14.5) Platelet Count 162 x10^3/uL (140-400) Neutrophils (%) (Auto) 76 % (31-73) Lymphocytes (%) (Auto) 13 % (24-48) Monocytes (%) (Auto) 5 % (0-9) Eosinophils (%) (Auto) 5 % (0-3) Basophils (%) (Auto) 0 % (0-3) Neutrophils # (Auto) 10.2 x10^3uL (1.8-7.7) Lymphocytes # (Auto) 1.8 x10^3/uL (1.0-4.8) Monocytes # (Auto) 0.7 x10^3/uL (0.0-1.1) Eosinophils # (Auto) 0.6 x10^3/uL (0.0-0.7) Basophils # (Auto) 0.1 x10^3/uL (0.0-0.2) Sodium Level 138 mmol/L (136-145) Potassium Level 3.9 mmol/L (3.5-5.1) Chloride Level 102 mmol/L (98-107) Carbon Dioxide Level 33 mmol/L (21-32) Anion Gap 3 (6-14) Blood Urea Nitrogen 23 mg/dL (8-26) Creatinine 0.9 mg/dL (0.7-1.3) Estimated GFR (Cockcroft-Gault) 87.0 Glucose Level 132 mg/dL (70-99) Calcium Level 8.2 mg/dL (8.5-10.1) Objective Assessment POD#6, s/p bioprosthetic AVR (21mm Magna Ease) No issues. Normotensive, SR. Did well with 6 min walk. Ambulating, on room air. Creat & BUN normal. Plan Plan of Care D/c home today Lasix 20mg po daily for 10 days Stop Amio ASA and b collins F/u in clinic in 3 weeks TERRA CALDERON MD Dec 19, 2017 13:09
== END 2017-12-19 13:57 | disposition home health service (06) | DRG 219 ==
LOC: OPSVCIP 05:51 → 1 WEST ICU 10:40 → 2 SOUTH 12-14 16:48
PROVIDERS: ADMIT Thoracic Surgery (Cardiothoracic Vascular Surgery); ATTEND Thoracic Surgery (Cardiothoracic Vascular Surgery)
PROC: 02RF08Z Replacement of Aortic Valve with Zooplastic Tissue, Open Approach (ICD-10-PCS; principal; 2017-12-13 07:30)
PROC: B246ZZ4 Ultrasonography of Right and Left Heart, Transesophageal (ICD-10-PCS; 2017-12-13 07:30)
DX: I35.0 Nonrheumatic aortic (valve) stenosis (principal); I49.01 Ventricular fibrillation; I50.32 Chronic diastolic (congestive) heart failure; J98.11 Atelectasis; N17.9 Acute kidney failure, unspecified; Z99.11 Dependence on respirator [ventilator] status; D64.9 Anemia, unspecified; E78.5 Hyperlipidemia, unspecified; F17.210 Nicotine dependence, cigarettes, uncomplicated; I11.0 Hypertensive heart disease with heart failure; I25.2 Old myocardial infarction; I20.9 Angina pectoris, unspecified; R09.02 Hypoxemia; M19.90 Unspecified osteoarthritis, unspecified site
CPT/HCPCS: 36415; 36600; 71045; 71046; 71250; 76376; 80048; 80053; 82803; 82805; 82962; 83036; 83735; 84132; 85025; 85027; 85347; 85384; 85610; 85730; 86850; 86900; 86901; 86920; 88305; 88311; 93005; 93320; 93325; 93880; 94002; 94618; C1769; C1781; J0282; J0690; J1100; J1644; J1940; J2001; J2150; J2175; J2250; J2270; J2405; J2704; J3010; J3370; J3475; J3490; J7030; J7040; J7120; P9041; P9046; Q0163; S0028; 97110; 97116; 97530; 97535

== ENCOUNTER → 2018-01-06 | Outpatient (CLI) | payer BC ==
[2017-12-19 11:00] VITALS: BP 105/62
[~2018-01-06] MED LIST changes: +ASPI325T11 PO; +FURO20TA3 PO; +OXYC1TAB7 PO; +SENN-22 PO
--- NOTE | 2018-01-06 14:11 | RAD ---
EXAM: Chest, 2 views. HISTORY: Aortic valve replacement. COMPARISON: 12/18/2017 FINDINGS: Frontal and lateral views of the chest are obtained. There is right apical and basilar pleural thickening likely due to a small pleural effusion. There are median sternotomy wires. There is an aortic valve prosthesis. No pneumothorax is seen. There is no infiltrate. IMPRESSION: 1. Suspected small right apical and basilar pleural fluid. 2. Median sternotomy changes. Electronically signed by: Erin Vicente MD (01/06/2018 2:08 PM) [place] [id number]
== END | disposition home or self-care (01) ==
LOC: RAD 13:21
PROVIDERS: ATTEND Thoracic Surgery (Cardiothoracic Vascular Surgery)
DX: Z48.812 Encounter for surgical aftercare following surgery on the circulatory system (principal); I11.0 Hypertensive heart disease with heart failure; I50.33 Acute on chronic diastolic (congestive) heart failure; E78.00 Pure hypercholesterolemia, unspecified; Z95.2 Presence of prosthetic heart valve; Z87.891 Personal history of nicotine dependence; Z82.49 Family history of ischemic heart disease and other diseases of the circulatory system
CPT/HCPCS: 71046

== ENCOUNTER → 2018-07-07 | Outpatient (CLI) | payer BC ==
[2018-07-07 08:33] LABS: CHOLESTEROL/HDL RATIO 2.7
--- NOTE | 2018-07-07 10:32 | CARD ---
MR#: [id number] Date of Study: 07/07/2018 Ordering Physician: KARL HERNADEZ, Referring Physician: KARL HERNADEZ, Tech: Kendra Ellison APPROVED REPORT EXAM: Two-dimensional and M-mode echocardiogram with Doppler and color Doppler. Other Information Quality : FairHR: 59bpm INDICATION Aortic Valve Replacement Surgery/Intervention Status/Post Aortic Valve Replacement: Bioprosthetic Date: 12/2017 RISK FACTORS Hypertension Hyperlipidemia Previous smoker 2D DIMENSIONS RVDd1.7 (2.9-3.5cm)Left Atrium(2D)2.3 (1.6-4.0cm) IVSd0.9 (0.7-1.1cm)Aortic Root(2D)2.1 (2.0-3.7cm) LVDd4.6 (3.9-5.9cm)LVOT Diameter1.9 (1.8-2.4cm) PWd1.3 (0.7-1.1cm)LVDs3.2 (2.5-4.0cm) FS (%) 30.9 %SV57.9 ml LVEF(%)58.6 (>50%) Aortic Valve AoV Peak Dedrick.323.2cm/sAoV VTI70.4cm AO Peak GR.41.8mmHgLVOT Peak Dedrick.183.3cm/s LVOT VTI 39.07cmAO Mean GR.22mmHg HILDA (VMAX)1.97wo2OQQ (VTI)1.61cm2 Mitral Valve MV E Ohlyfuar813.3cm/sMV DECEL SVOU842zr MV A Bfvdgtaf70.9cm/sMV TYV92qp E/A Ratio1.3MVA (PHT)4.16cm2 TDI E/Lateral E'16.6E/Medial E'18.2 Pulmonary Valve PV Peak Mykinsqv212.6cm/sPV Peak Grad.9mmHg Tricuspid Valve TR P. Tchnqnqa052jc/sRAP [id number] TR Peak Gr.76faRpWFYP63reBr Pulmonary Vein S1 Iwsvyhkq02.2cm/sD2 Mmltkaay79.5cm/s PVa ickqhvzq006dsdj LEFT VENTRICLE The left ventricle is normal size. There is moderate to severe concentric left ventricular hypertroph y. The left ventricular systolic function is normal. The Ejection Fraction is 55-60%. There is normal LV segmental wall motion. Transmitral Doppler flow pattern is Grade II-pseudonormal filling dynamics . RIGHT VENTRICLE The right ventricle is normal size. There is normal right ventricular wall thickness. The right ventr icular systolic function is normal. ATRIA The left atrium size is normal. The right atrium is borderline dilated. The interatrial septum is int act with no evidence for an atrial septal defect or patent foramen ovale as noted on 2-D or Doppler i maging. AORTIC VALVE Doppler and Color Flow revealed no significant aortic regurgitation. There is no significant aortic v alvular stenosis. Bioprosthetic aortic valve appears well seated. Mean gradient accross valve 22 mm H g. MITRAL VALVE The mitral valve is normal in structure and function. There is no evidence of mitral valve prolapse. There is no mitral valve stenosis. Doppler and Color-flow revealed trace to mild mitral regurgitation . TRICUSPID VALVE The tricuspid valve is normal in structure and function. Doppler and Color Flow revealed trace tricus pid regurgitation. There is no tricuspid valve stenosis. PULMONIC VALVE The pulmonic valve is not well visualized. Doppler and Color Flow revealed no pulmonic valvular regur gitation. GREAT VESSELS The aortic root is normal in size. Aortic Valve Replacement. The IVC is normal in size and collapses >50% with inspiration. PERICARDIAL EFFUSION There is no evidence of significant pericardial effusion. Critical Notification Critical Value: No <Conclusion> The left ventricular systolic function is normal. The Ejection Fraction is 55-60%. There is normal LV segmental wall motion. Bioprosthetic aortic valve appears well seated. Mean gradient accross valve 22 mm Hg. Trace to mild mitral regurgitation. Trace tricuspid regurgitation. There is no evidence of significant pericardial effusion. Signed by : Fuad Griffith, Electronically Approved : 07/07/2018 10:31:52
== END | disposition home or self-care (01) ==
LOC: ECHO 07:56
PROVIDERS: ATTEND Internal Medicine Cardiovascular Disease
DX: I11.9 Hypertensive heart disease without heart failure (principal); E78.5 Hyperlipidemia, unspecified; Z95.4 Presence of other heart-valve replacement; Z87.891 Personal history of nicotine dependence
CPT/HCPCS: 36415; 80061; 83721; 93306